=== PATIENT | male | born 1985 | race Caucasian/White ===

== ENCOUNTER 2024-06-15 22:08 | Inpatient (IN) | payer MEDICAID, SELFPAY ==
[2024-06-15] VITALS (76 sets, daily range): BP systolic 96–132; BP diastolic 50–76; PULSE 41–121; RESP 0–32; TEMP 37.7–37.8; O2SAT 81–96
--- NOTE | 2024-06-15 22:00 | RT.EKG_ITS ---
APPROVED REPORT Exam: Resting ECG Reason for Exam: Sepsis Patient Location: E HR:118 bpm ECG Measurements Heart Rate 118 AXIS MO 150 P 39 QRSd 89 QRS 38 QT 316 T 48 QTc 443 Conclusion Sinus tachycardia...rate> [address] elevation, anterior leads...ST >0.15mV in V1-V4 Physician: no stemi
[2024-06-15 22:34] LABS: Abs Immature Grans 0.08 10^3/uL (0.0-0.06); Absolute Basophil Count 0.04 10^3/uL (0.0-0.2); Absolute Eosinophil Count 0.14 10^3/uL (0.0-0.7); Absolute Monocyte Count 0.83 10^3/uL (0.1-0.8); Absolute Neutrophil Count 10.28 10^3/uL (1.2-6.7); Basophils % 0.3 %; Eosinophils % 1.1 %; HCT 44.1 % (40.0-50.0); HGB 15.9 g/dL (13.5-17.5); Immature Grans % 0.6 %; Lactate 3.8 mmol/L (<or=2.0); Lymphocytes % 8.5 %; MCHC 36.1 % (32.0-36.0); MCV 89 fL (80-95); MPV 10.5 fL (8.0-11.0); Monocytes % 6.7 %; Neutrophils % 82.8 %; Platelet Count 124 10^3/uL (130-400); RBC 4.97 10^6/uL (4.36-5.78); RDW 13.5 % (11.8-14.1); RDW-SD 43.7 fL; WBC 12.42 10^3/uL (4.4-10.8)
--- NOTE | 2024-06-15 22:34 | W.ED.GENAD ---
Discharge Plan Disposition Patient Disposition: Admit to [facility] Condition: Serious Discharge Details Chief Complaint: Cellulitis Clinical Impression: Sepsis, Cellulitis of right lower extremity, Severe sepsis Admit Date/Time: 06/15/24 23:25 Admit Provider: Edgard Bearden Attending Provider: Edgard Bearden Primary Care Provider: Unknown,Unknown ED Provider: Lucas He General Date/Time Provider Initiated Documentation: 06/15/24 22:08. HPI Narrative: This is a 39-year-old male with a past medical history of hepatitis C, GERD, who presents today for evaluation of cellulitis and sepsis. [facility]. He states that about 3 to 4 days ago he noticed some redness on his right lan. He denies any injury or trauma. He denies any initial pimples or cuts. He states that over the last few days the redness has grown and spread, and over the last 24 hours he has become febrile and felt quite ill. [facility] staff checked his temperature and it was 104.3, he was brought to the ER via EMS. He denies any cough, chest pain or shortness of breath. He admits to achiness at the site of the redness on his lan on the right, he also admits to achiness slightly traveling up his leg. He denies any history of HIV but does admit to a history of drug abuse in the past. No other complaints at this time. Related Data Home Medications ?Medication ?Instructions ?Recorded ?Confirmed buprenorphine 2 mg-naloxone 0.5 mg 2 film sublingual DAILY 06/15/24 06/15/24 sublingual film (Suboxone) buprenorphine 8 mg-naloxone 2 mg 2 film sublingual DAILY 06/15/24 06/15/24 sublingual film (Suboxone) docusate sodium 50 mg capsule 50 mg PO TID PRN 06/15/24 06/15/24 (Colace Clear) famotidine 20 mg tablet 20 mg PO BID 06/15/24 06/15/24 hydroxyzine HCl 25 mg tablet 75 mg PO DAILY 06/15/24 06/15/24 ibuprofen 200 mg tablet (Advil) 400 mg PO BID PRN 06/15/24 06/15/24 melatonin 3 mg capsule 6 mg PO QHS 06/15/24 06/15/24 triamcinolone acetonide 0.5 % 1 applic topical BID 06/15/24 06/15/24 topical cream Allergies Allergy/AdvReac Type Severity Reaction Status Date / Time No Known Allergies Allergy Unverified 06/15/24 22:09 General Stated Complaint: Cellulitis MAUREEN: 2 Exam Narrative Exam Narrative: 1.Const: Well-nourished, Well-developed, appearing stated age 2.Eyes: PERRL, no conjunctival injection, and symmetrical lids. 3.ENT: Atraumatic external nose and ears. Moist MM. Neck: Symmetric, trachea midline, No thyromegaly. 4.CVS: +S1/S2, Peripheral pulses 2+ and equal in all extremities. Brisk capillary refill in all extremities. 5.RESP: Unlabored respiratory effort. Clear to auscultation bilaterally. No wheezes rales or rhonchi 6.GI: Soft, Nontender/Nondistended, No hepatosplenomegaly. No guarding or rebound. 7.MSK: Normocephalic/Atraumatic, Extremities w/o deformity or ttp No cyanosis or clubbing, Normal movement of all extremities. Dorsalis pedis posterior tibial pulse +2 bilaterally. 8.Skin: Warm, Dry. Circumferential erythema around the right lower extremity at the level of the tip/fib, extending up towards the knee and down to the ankle. No subcutaneous crepitus, focal abscess, or vesicles. 9.Neuro: seed tester II-XII grossly intact. Sensation grossly intact, no focal neurologic deficits. 10.Psych: (AAO) x3. Appropriate mood and affect Course Vital Signs Vital signs: Vital Signs Temperature 37.8 C H 06/15/24 22:09 Pulse 121 H 06/15/24 22:09 Respiratory Rate 25 H 06/15/24 22:09 Blood Pressure 132/71 06/15/24 22:09 Pulse Oximetry 93 06/15/24 22:09 Temperature 37.7 C H 06/15/24 22:13 Temperature Source Oral 06/15/24 22:13 Pulse 118 H 06/15/24 22:13 Respiratory Rate 17 06/15/24 22:13 Blood Pressure 128/76 06/15/24 22:13 Blood Pressure Position Sitting 06/15/24 22:13 Pulse Oximetry 93 06/15/24 22:13 Oxygen Delivery Method Room Air 06/15/24 22:13 Oxygen Flow Rate 0 06/15/24 22:09 Pain Level 5 06/15/24 22:13 Lab/Test Results Lab/Test Results: 06/15/24 22:25 Blood Blood Culture - Pending 06/15/24 22:25 Blood Blood Culture - Pending Medical Decision Making This is a 39-year-old male with a past medical history of hepatitis C, GERD, who presents today for evaluation of cellulitis and sepsis. [facility]. He states that about 3 to 4 days ago he noticed some redness on his right lan. He denies any injury or trauma. He denies any initial pimples or cuts. He states that over the last few days the redness has grown and spread, and over the last 24 hours he has become febrile and felt quite ill. [facility] staff checked his temperature and it was 104.3, he was brought to the ER via EMS. He denies any cough, chest pain or shortness of breath. He admits to achiness at the site of the redness on his lan on the right, he also admits to achiness slightly traveling up his leg. He denies any history of HIV but does admit to a history of drug abuse in the past. No other complaints at this time. Patient demonstrates a notable amount of circumferential erythema in the right lower extremity in the area of the tip/fib. Extends to the knee and down to the ankle. He is tachycardic, febrile, but with a normal blood pressure. Concern for sepsis/potential for severe sepsis secondary to cellulitis. Will start with 2 L of IV fluids, 20 cc/kg bolus would be 2700 mL, so we will reassess after the first 2 L to see if the patient does develop septic shock. Or need the complete 20 cc/kg bolus. Will start broad-spectrum antibiotics of vancomycin, Zosyn, and azithromycin for MRSA coverage as well as atypical coverage. No subcutaneous gas that I can appreciate, but we will get x-ray to rule out neck Fash. We will get an HIV screen to check for immune susceptibility. Will get a screening chest x-ray and urinalysis and blood cultures, monitor closely and reassess. 12:24 AM Laboratory workup shows an elevated white count with left shift, no bandemia. Lactate high at 3.8, slightly elevated creatinine. Procalcitonin notably high at 155. COVID flu and RSV negative, chest x-ray is read as possible degree of CHF, however clinically he does not demonstrate clear evidence of this. Concern for potential atypical pulmonary component. No subcutaneous emphysema for x-ray of the right leg. Broad-spectrum antibiotics have already been started, patient has been rehydrated, heart rate has improved to 100, blood pressure remains normotensive. Symptoms consistent with severe sepsis. Discussed the case with hospitalist Dr. Bearden, he agrees with need for admission. I have extensively reviewed the treatment plan with the patient. I have addressed all patient concerns at this time. I have also discussed the plan with the admitting physician and they agree with the current assessment and plan and have agreed to assume responsibility for the patient. All parties demonstrate verbal understanding and agreement with our assessment and plan at this time. The documentation in this chart was dictated using [employer] dictation software. Please excuse any dictation errors. FINDINGS: Lungs: There may be mild redistribution of the pulmonary vascularity. No focal infiltrates. Pleural spaces: Unremarkable. No pleural effusion. No pneumothorax. Heart/Mediastinum: Unremarkable. No cardiomegaly. Bones/joints: Unremarkable. IMPRESSION: Possible degree of congestive heart failure. Thank you for allowing us to participate in the care of your patient. Dictated and Authenticated by: Marium Mcdowell MD 06/15/2024 10:58 PM Eastern Time ([place] & [place]) FINDINGS: Bones/joints: Normal. Soft tissues: There is a calcification in the anterior and medial mid calf. No subcutaneous emphysema noted. IMPRESSION: No evidence for subcutaneous emphysema. Thank you for allowing us to participate in the care of your patient. Dictated and Authenticated by: Marium Mcdowell MD 06/15/2024 10:54 PM Eastern Time ([place] & [place]) Quality:SDOH Health Related Social Needs: No Data to Display Critical Care Time Critical Care Time Critical Care Time: Yes Total Critical Care Time: 45 Attestation: Upon my evaluation, this patient had a high probability of imminent or life-threatening deterioration, which required my direct attention, intervention, and personal management. I have personally provided 45 minutes of critical care time exclusive of time spent on separately billable procedures. Time includes review of laboratory data, radiology results, discussion with consultants, and monitoring for potential decompensation. Interventions were performed as documented. PFSH All Active Problems (Updated 06/16/24 @ 00:27 by Lucas R [place], DO) Severe sepsis (Acute) GERD (gastroesophageal reflux disease) (Chronic) Anxiety disorder (Chronic) Chronic hepatitis C (Chronic) Opioid use disorder (Chronic) Cellulitis of right lower extremity (Acute) Sepsis (Acute) Social History Smoking risk assessment performed?: No Alcohol Intake: former Drug use: Current Sobriety Substance use type: former substance user and IV drugs Housing: other Do you feel safe at home: Yes Do you feel safe in your relationship?: Yes Additional Social history: inmate
[2024-06-15 22:35] LABS: Absolute Lymphocyte Count 1.06 10^3/uL (1.2-3.4)
--- NOTE | 2024-06-15 22:37 | DI.RAD_ITS ---
Exam(s) XR PORTABLE CHEST AP EXAM: XR PORTABLE CHEST AP CLINICAL HISTORY: sepsis. TECHNIQUE: 2D digital imaging was performed. COMPARISON: No exams were available for comparison FINDINGS: Single AP portable view. Heart size is upper normal. The mediastinum is not widened. Lungs are clear. No infiltrates nor obvious pleural effusions. IMPRESSION: No acute pulmonary findings on this single AP portable view of the chest. DATA REPOSITORY: RADIATION DOSE DELIVERED:
--- NOTE | 2024-06-15 22:37 | DI.RAD_ITS ---
Exam(s) XR TIB/FIB RT EXAM: XR TIB/FIB RT CLINICAL HISTORY: diffuse cellulitis, eval for gas. TECHNIQUE: 2D digital imaging was performed. COMPARISON: No exams were available for comparison FINDINGS: Two views No evidence fracture nor osseous lesions nor radiographic evidence of osteomyelitis. Calcified phleb oliths are noted. There is subcutaneous soft tissue swelling. There is no gas in the soft tissues. No radiopaque foreign bodies. IMPRESSION: No acute osseous findings. Subcutaneous edema but no gas in the soft tissues DATA REPOSITORY: RADIATION DOSE DELIVERED:
[2024-06-15 22:51] LABS: ALT 131 U/L (16-63); AST 91 U/L (15-37); Albumin 3.5 g/dL (3.4-5.0); Alkaline Phosphatase 68 U/L (46-116); Anion Gap 10.3 mmol/L (3-11); BUN 23 mg/dL (7-18); Bilirubin, Total 0.9 mg/dL (0.2-1.0); CO2 23.7 mmol/L (21.0-32.0); CREATININE 1.6 mg/dL (0.70-1.30); Calcium 8.8 mg/dL (8.5-10.1); Chloride 103 mmol/L (98-107); Estimated GFR 56.21 (mL/min/1.73m2); Glucose 132 mg/dL (74-106); Potassium 3.8 mmol/L (3.5-5.1); Sodium 137 mmol/L (136-145); Total Protein 7.7 g/dL (6.4-8.2)
--- NOTE | 2024-06-15 22:55 | DI.VRAD_ITS ---
PROCEDURE INFORMATION: Exam: XR Right Tibia and Fibula Exam date and time: 06/15/2024 10:33 PM Age: 39 years old Clinical indication: Lower leg; Right; Diffuse cellulitis, eval for gas TECHNIQUE: Imaging protocol: Radiologic exam of the right tibia and fibula. Views: 2 views. COMPARISON: No relevant prior studies available. FINDINGS: Bones/joints: Normal. Soft tissues: There is a calcification in the anterior and medial mid calf. No subcutaneous emphysema noted. IMPRESSION: No evidence for subcutaneous emphysema. Dictated and Authenticated by: Marium Mcdowell MD. Orderin Neri Zavala MD
--- NOTE | 2024-06-15 22:59 | DI.VRAD_ITS ---
PROCEDURE INFORMATION: Exam: XR Chest Exam date and time: 06/15/2024 10:36 PM Age: 39 years old Clinical indication: Other: Sepsis TECHNIQUE: Imaging protocol: Radiologic exam of the chest. Views: 1 view. Other technique: Portable exam. COMPARISON: No relevant prior studies available. FINDINGS: Lungs: There may be mild redistribution of the pulmonary vascularity. No focal infiltrates. Pleural spaces: Unremarkable. No pleural effusion. No pneumothorax. Heart/Mediastinum: Unremarkable. No cardiomegaly. Bones/joints: Unremarkable. IMPRESSION: Possible degree of congestive heart failure. Dictated and Authenticated by: Marium Mcdowell MD. Orderin Neri Zavala MD
[2024-06-15] MEDS: AZITHROMYCIN 500 MG in Normal Saline 250 ML 250 MG IVPB (23:02)
[2024-06-15] MEDS: Normal Saline 1,000 ML 1000 ML IV (23:03)
[2024-06-15] MEDS: VANCOMYCIN 2,000 MG in Normal Saline 500 ML 333.3333 MG IVPB (23:03)
[2024-06-15] MEDS: PIPERACILLIN/TAZO 4.5 GM in Normal Saline 100 ML IVPB (23:04)
[2024-06-15] MEDS: Lactated Ringers 1,000 ML 1000 ML IV (23:05)
[2024-06-15] MEDS: ACETAMINOPHEN 1,000 MG/100 ML BTL 400 MG IVPB (23:20)
--- NOTE | 2024-06-15 23:27 | W.PM.HP.N ---
Date of service: 06/15/24 Time of Service: 23:27 Assessment and Plan Assessment and plan (1) Sepsis: Start date: 06/15/24 Status: Acute Assessment and plan: This is a 39-year-old gentleman with history of increasing redness over the right leg and now fever with elevated WBC and lactate as well as tachycardia and tachypnea upon admission. Imaging did not show any subcutaneous emphysema over his right leg where he has cellulitis as a source of infection for sepsis. Lungs were also slightly abnormal but no infiltrates were seen. He was initiated on vancomycin with Zosyn and Zithromax. Because of medication complex and to maintain regimen covering both the cellulitis of possible lung process with increased markings, patient was switched to vancomycin with cefepime and doxycycline. Blood cultures were performed. He continued to have fever. Urinalysis was benign. COVID/influenza/RSV screening were negative. He will continue on IV antibiotic therapy adjusting to any positive cultures and sensitivities. He did receive fluid resuscitation which will be continued with an infusion. He is a full code. (2) Cellulitis of right lower extremity: Start date: 06/15/24 Status: Acute Assessment and plan: Continue IV vancomycin and cefepime. The increased coverage with doxycycline was initiated by the ED physician and will be continued for now with close monitoring of his respiratory status and follow-up chest x-ray if needed. (3) Opioid use disorder: Status: Chronic Assessment and plan: Patient has been on Suboxone and his [facility] did not show any prescriptions written for outpatient treatment prior to his imprisonment with the half-way t treatments being in-house not showing up on the [facility]. The Suboxone dosing will be confirmed with the half-way prior to treating in the hospital. Urine drug screen was performed. Patient is high risk for misuse, even in presence. (4) Chronic hepatitis C: Status: Chronic Assessment and plan: Patient is unaware of his status of hepatitis C and denies any previous treatment. His liver function tests are elevated. His PT/INR is slightly elevated. This should be addressed more aggressively as a treatable disease with his PCP and gastroenterology. (5) Anxiety disorder: Status: Chronic Assessment and plan: Patient is on hydroxyzine which will be continued as needed. (6) GERD (gastroesophageal reflux disease): Status: Chronic Assessment and plan: Continue PPI. History of Present Illness History of Present Illness Chief Complaint: 3 to 4 days of right lan redness and swelling with pain. Narrative: This is a 39-year-old male patient from the [facility]-way who has a history of hepatitis C and is on Suboxone for opioid drug use disorder with no IV drug use recently. He presents with a 3 to 4-day history of redness in his right lan with no trauma and the redness has grown and spread more quickly over the last day. He has fever up to 104 degrees. Fahrenheit and present. He denies any respiratory symptoms. He does have pain over the breast area with redness spreading up his leg. He does not have a history of HIV though he does have an IV drug use history with hep C. He is also on treatment for GERD and some anxiety as well as use a topical cream for an undisclosed rash by reviewing his history which is paucely recorded. Patient has any GI symptoms or focal neurological complaints. ED evaluation did show no subcutaneous emphysema in the area of his right leg cellulitis and chest x-ray did show some increased markings questioning fluid overload with no distinct infiltrate. He was begun on Zosyn, vancomycin and erythromycin after blood cultures were obtained. He did have an elevated WBC, fever and tachycardia with tachypnea as well as an elevated lactate level indicating sepsis syndrome. He did have IV fluid resuscitation with 2 L and this will be continued with ongoing antibiotic treatment for his source of infection being cellulitis of his right leg. He is a full code. Review of Systems Narrative: 13 point review of systems otherwise unrevealing or stable. PFSH All Active Problems Severe sepsis (Acute) GERD (gastroesophageal reflux disease) (Chronic) Anxiety disorder (Chronic) Chronic hepatitis C (Chronic) Opioid use disorder (Chronic) Cellulitis of right lower extremity (Acute) Sepsis (Acute) Social History Smoking risk assessment performed?: No Alcohol Intake: former Drug use: Current Sobriety Substance use type: former substance user and IV drugs Housing: other Do you feel safe at home: Yes Do you feel safe in your relationship?: Yes Additional Social history: inmate Meds Allergies and Home Medications Allergies Allergy/AdvReac Type Severity Reaction Status Date / Time No Known Allergies Allergy Unverified 06/15/24 22:09 Home Medications ?Medication ?Instructions ?Recorded ?Confirmed ?Type buprenorphine 2 mg-naloxone 0.5 mg 2 film sublingual DAILY 06/15/24 06/15/24 History sublingual film (Suboxone) buprenorphine 8 mg-naloxone 2 mg 2 film sublingual DAILY 06/15/24 06/15/24 History sublingual film (Suboxone) docusate sodium 50 mg capsule 50 mg PO TID PRN 06/15/24 06/15/24 History (Colace Clear) famotidine 20 mg tablet 20 mg PO BID 06/15/24 06/15/24 History hydroxyzine HCl 25 mg tablet 75 mg PO DAILY 06/15/24 06/15/24 History ibuprofen 200 mg tablet (Advil) 400 mg PO BID PRN 06/15/24 06/15/24 History melatonin 3 mg capsule 6 mg PO QHS 06/15/24 06/15/24 History triamcinolone acetonide 0.5 % 1 applic topical BID 06/15/24 06/15/24 History topical cream Exam Narrative Exam Narrative: General: Patient is morbidly obese and chronically ill-appearing and appears older than stated age. He does have his speech is slow monotonous. Flat affect with fair eye contact. He is alert and oriented to person, place and time. Is in moderate distress from his right leg discomfort. HEENT: Normocephalic, coarsened facial features with puffiness, eyes with pupils equal and reactive to light symmetrically, extraocular movement intact and sclera anicteric. Oropharynx with dry mucosa and poor dentition. Neck: Supple without JVD. Neck: Stooped posture without CVA tenderness. Lungs: Decreased aeration throughout with no focalizing rales or rhonchi. No increased expiratory phase or expiratory wheeze. Bronchovesicular breath sounds. Heart: Tachycardic rate with regular rhythm. No peripheral murmur or gallop. Abdomen: Obese contour with pannus, soft to palpation with no palpable hepatosplenomegaly. No focal tenderness, guarding or rebound. Bowel sounds positive in all quadrants. Genitalia/rectal: Exam deferred. Skin: Pale, moist and warm with multiple tattoos especially over right leg. Right leg does have patches of dark erythema over the anterior lateral tibial area with black markings of his skin showing some progression of his erythema to the middle of his leg. Extremities: Without clubbing or cyanosis. There is does have 2+ hard, nonpitting edema right leg compared to left with some nonpitting edema on the left as well. Fair capillary refill. Neuro: Cranial nerves II through XII gross intact, no focalized motor deficits. No tremor. Psych: Flattened affect with depressed mood. Patient appears slightly anxious. No abnormal thought processes. Patient is a minimalist with conversation. Remote and recent memory appear to be grossly intact patient stated he has been in half-way for the last year. Results Imaging Imaging Studies: Exam: XR Right Tibia and Fibula Exam date and time: 06/15/2024 10:33 PM Age: 39 years old Clinical indication: Lower leg; Right; Diffuse cellulitis, eval for gas TECHNIQUE: Imaging protocol: Radiologic exam of the right tibia and fibula. Views: 2 views. COMPARISON: No relevant prior studies available. FINDINGS: Bones/joints: Normal. Soft tissues: There is a calcification in the anterior and medial mid calf. No subcutaneous emphysema noted. IMPRESSION: No evidence for subcutaneous emphysema. Exam: XR Chest Exam date and time: 06/15/2024 10:36 PM Age: 39 years old Clinical indication: Other: Sepsis TECHNIQUE: Imaging protocol: Radiologic exam of the chest. Views: 1 view. Other technique: Portable exam. COMPARISON: No relevant prior studies available. FINDINGS: Lungs: There may be mild redistribution of the pulmonary vascularity. No focal infiltrates. Pleural spaces: Unremarkable. No pleural effusion. No pneumothorax. Heart/Mediastinum: Unremarkable. No cardiomegaly. Bones/joints: Unremarkable. IMPRESSION: Possible degree of congestive heart failure. Labs 06/15/24 22:25 06/15/24 22:25 Labs: Laboratory Results - last 24 hr 06/15/24 22:25 WBC 12.42 H RBC 4.97 Hgb 15.9 Hct 44.1 MCV 89 MCH 32.0 MCHC 36.1 H RDW 13.5 Plt Count 124 L MPV 10.5 Immature Gran % 0.6 Neutrophils % 82.8 Lymphocytes % 8.5 Monocytes % 6.7 Eosinophils % 1.1 Basophils % 0.3 Nucleated RBC % 0.0 Absolute Neutrophils 10.28 H Absolute Lymphocytes 1.06 L Absolute Monocytes 0.83 H Absolute Eosinophils 0.14 Absolute Basophils 0.04 VBG Lactate 3.8 H* Sodium 137 Potassium 3.8 Chloride 103 Carbon Dioxide 23.7 Anion Gap 10.3 BUN 23 H Creatinine 1.6 H Est GFR (CKD-EPI 2020) 56.21 Glucose 132 H Calcium 8.8 Total Bilirubin 0.9 AST 91 H ALT 131 H Alkaline Phosphatase 68 Total Protein 7.7 Albumin 3.5 Last Vital Signs Temp 37.7 C H 06/15/24 22:13 Pulse 118 H 06/15/24 22:13 Resp 17 06/15/24 22:13 BP 128/76 06/15/24 22:13 Pulse Ox 93 06/15/24 22:13 Time Spent Time spent with Patient: >75 minutes Time was spent: preparing to see the patient(eg.review tests), obtaining and/or reviewing separately otained hiistory, ordering medications,tests, procedures, indepentently interpreting results and care coordination
[2024-06-16] VITALS (14 sets, daily range): BP systolic 103–119; BP diastolic 58–75; PULSE 81–102; RESP 16–20; TEMP 35.1–40.3; O2SAT 94–99
--- NOTE | 2024-06-16 | W.PC.ACHO ---
Registration Status: Primary Language: Preferred Language: ED Information & Data Chief Complaint Cellulitis 06/15/24 22:49 Triage Note Pt w/ RLE redness, soreness 06/15/24 22:09 and swelling x2-3 days BIBEMS from alf. AOx3 but fatigued, c/o chills and fevers. Was febrile to 104. 3F per [facility] RN, but given 400mg ibuprofen prior to EMS arrival w/ some improvement . Pt c/o pain in lan w/ movement that radiates up into thigh Most Recent Vital Signs Temperature 37.7 C H 06/15/24 22:13 Temperature Source Oral 06/15/24 22:13 Pulse 103 H 06/15/24 23:35 Respiratory Rate 18 06/15/24 23:35 Blood Pressure 128/76 06/15/24 22:13 Blood Pressure Position Sitting 06/15/24 22:13 Pulse Oximetry 95 06/15/24 23:35 Oxygen Delivery Method Room Air 06/15/24 22:13 Oxygen Flow Rate 0 06/15/24 22:09 Pain Level 5 06/15/24 22:13 Allergies No Known Allergies Allergy (Unverified 06/15/24 22:09) Precautions Isolation Standard precaution 06/15/24 22:13 IV IV Catheter Type [Left Saline Lock Antecubital] IV Catheter Type [Right Diffusics Antecubital] IV Catheter Gauge [Left 20 Antecubital] IV Catheter Gauge [Right 20 Antecubital] Diet Orders Category Date Time Status Regular/Normal [DIET] Nutrition 06/16/24 Breakfast Ordered Diagnostics 06/15/24 06/15/24 Range/Units 23:16 22:25 WBC 12.42 H (4.4-10.8) 10^3/uL RBC 4.97 (4.36-5.78) 10^6/uL Hgb 15.9 (13.5-17.5) g/dL Hct 44.1 (40.0-50.0) % MCV 89 (80-95) fL MCH 32.0 (27.0-33.0) pg MCHC 36.1 H (32.0-36.0) % RDW 13.5 (11.8-14.1) % Plt Count 124 L (130-400) 10^3/uL MPV 10.5 (8.0-11.0) fL Immature Gran % 0.6 % Neutrophils % 82.8 % Lymphocytes % 8.5 % Monocytes % 6.7 % Eosinophils % 1.1 % Basophils % 0.3 % Nucleated RBC % 0.0 (0.0-0.3) % Absolute Neutrophils 10.28 H (1.2-6.7) 10^3/uL Absolute Lymphocytes 1.06 L (1.2-3.4) 10^3/uL Absolute Monocytes 0.83 H (0.1-0.8) 10^3/uL Absolute Eosinophils 0.14 (0.0-0.7) 10^3/uL Absolute Basophils 0.04 (0.0-0.2) 10^3/uL PT Pending INR Pending VBG Lactate 3.8 H* (<or=2.0) mmol/L Sodium 137 (136-145) mmol/L Potassium 3.8 (3.5-5.1) mmol/L Chloride 103 (98-107) mmol/L Carbon Dioxide 23.7 (21.0-32.0) mmol/L Anion Gap 10.3 (3-11) mmol/L BUN 23 H (7-18) mg/dL Creatinine 1.6 H (0.70-1.30) mg/dL Est GFR (CKD-EPI 2020) 56.21 (mL/min/1.73m2) Glucose 132 H (74-106) mg/dL Calcium 8.8 (8.5-10.1) mg/dL Magnesium Pending Total Bilirubin 0.9 (0.2-1.0) mg/dL AST 91 H (15-37) U/L ALT 131 H (16-63) U/L Alkaline Phosphatase 68 (46-116) U/L Total Protein 7.7 (6.4-8.2) g/dL Albumin 3.5 (3.4-5.0) g/dL Procalcitonin 155.50 ng/mL COVID-19 Source Pending SARS-CoV-2 (PCR) Pending Influenza Type A (PCR) Pending Influenza Type B (PCR) Pending RSV (PCR) Pending 06/15/24 22:25 Blood Culture - Pending Blood 06/15/24 22:25 Blood Culture - Pending Blood [id number] Documentation Fingerstick Glucose Start: 06/15/24 22:18 Freq: .Stat Status: Active Protocol: Activity Type Activity Date Activity User E-sign Co-sign Detail Recorded Client Recorded Date Recorded By Document 06/15/24 23:35 LB [id number] 06/15/24 23:36 LB Intake and Output - 24 Hour Total 06/15/24 22:03 thru 06/15/24 23:37 Intake Total 200 Balance 200 Weight 136.078 kg Intake: IV 200 Falls Risk Assessment History of Falls No History 06/15/24 22:13 Contributing Factors No Factors 06/15/24 22:13 Ambulatory Aids Independent 06/15/24 22:13 Tubes/Lines None 06/15/24 22:13 Gait Evaluation W/no contributing factors 06/15/24 22:13 Cognition No cognitive impairment 06/15/24 22:13 Fall Total Score 10 06/15/24 22:13 Level of Risk Standard/Low Risk 06/15/24 22:13 Problems (Last Reviewed 06/15/24 @ 23:32 by Edgard Bearden) GERD (gastroesophageal reflux disease) (Chronic) Anxiety disorder (Chronic) Chronic hepatitis C (Chronic) Opioid use disorder (Chronic) Cellulitis of right lower extremity (Acute) Sepsis (Acute) v v v v v v v v v Sending and/or Receiving Nurses: Please use comment section below to note any information pertinent to the patient hand-off not included above. Information / Comments: Report received from:Fide. patient is alert and oriented x3. HRR, tachy. He is on room air. He has 2 IV sites. Has had multiple antibiotics. All questions asked, answered. Patient to be transported to [facility].
[2024-06-16 00:04] LABS: Magnesium 1.1 mg/dL (1.8-2.4); Prothrombin Time 13.3 sec (9.1-11.1)
[2024-06-16 00:05] LABS: INR 1.3 (0.9-1.1)
[2024-06-16 00:11] LABS: COVID-19 PCR Negative (Negative); Influenza A PCR Negative (Negative); Influenza B PCR Negative (Negative); RSV PCR Negative (Negative)
[2024-06-16 00:18] LABS: Source Nasopharynx
[2024-06-16] MEDS: Melatonin 3 MG TAB 6 MG PO (00:49)
[2024-06-16] MEDS: Normal Saline 1,000 ML 125 ML IV ×3 (01:30→20:09)
[2024-06-16 02:10] LABS: Bilirubin Negative (Negative); Blood Negative (Negative); Clarity Clear (Clear); Glucose Negative (Negative); Ketones Negative (Negative); Leukocyte Esterase Negative (Negative); Nitrite Negative (Negative); Specific Gravity 1.025 (1.005-1.025); Urobilinogen 0.2 mg/dL (Up to 0.2)
[2024-06-16 02:20] LABS: Bacteria Rare HPF (Negative); C & S Indicated? No; Casts Negative LPF (Negative); Crystals Negative HPF (Negative); Epithelial Cells Rare HPF (Negative); Mucus Negative (Negative); RBC Negative HPF (0-2); WBC Negative HPF (0-5)
[2024-06-16 02:27] LABS: *AMPHETAMINES SCREEN URINE Negative (Negative); *BARBITURATES SCREEN URINE Negative (Negative); *BENZODIAZEPINES SCREEN URINE Negative (Negative); Cannabinoids THC Negative (Negative); Cocaine Screen,Urine Negative (Negative); METHADONE URINE SCREEN Negative (Negative); OPIATES URINE SCREEN Negative (Negative)
[2024-06-16 02:29] LABS: Tricyclic Antidepressants Negative (Negative)
[2024-06-16 07:17] LABS: HCT 41.6 % (40.0-50.0); HGB 14.3 g/dL (13.5-17.5); MCH 31.2 pg (27.0-33.0); MCHC 34.4 % (32.0-36.0); MCV 91 fL (80-95); MPV 9.7 fL (8.0-11.0); RBC 4.59 10^6/uL (4.36-5.78); RDW 13.6 % (11.8-14.1); RDW-SD 45.3 fL; WBC 9.75 10^3/uL (4.4-10.8)
[2024-06-16 07:18] LABS: Lactate 3.2 mmol/L (<or=2.0)
[2024-06-16 07:35] LABS: ALT 116 U/L (16-63); AST 83 U/L (15-37); Alkaline Phosphatase 48 U/L (46-116); Anion Gap 8.2 mmol/L (3-11); BUN 22 mg/dL (7-18); Bilirubin, Total 1.4 mg/dL (0.2-1.0); CO2 25.8 mmol/L (21.0-32.0); CREATININE 1.4 mg/dL (0.70-1.30); Calcium 8.1 mg/dL (8.5-10.1); Chloride 104 mmol/L (98-107); Estimated GFR 65.98 (mL/min/1.73m2); Glucose 144 mg/dL (74-106); Magnesium 1.3 mg/dL (1.8-2.4); Potassium 4.5 mmol/L (3.5-5.1); Sodium 138 mmol/L (136-145)
[2024-06-16 07:38] LABS: Platelet Count 93 10^3/uL (130-400)
[2024-06-16 07:40] LABS: Vancomycin, Random 18.2 ug/mL
[2024-06-16] MEDS: CEFEPIME 2 GM in Normal Saline 100 ML IVPB ×3 (07:42→23:58)
[2024-06-16] MEDS: Normal Saline Flush 10 ML SYR IVP ×2 (07:44→20:10)
[2024-06-16] MEDS: Buprenorphine/Naloxone 8 mg/2 mg FILM 2 EACH SL (08:31)
[2024-06-16] MEDS: Buprenorphine/Naloxone 2 mg/0.5 mg FILM 2 EACH SL (08:31)
[2024-06-16] MEDS: Famotidine 20 MG TAB PO ×2 (08:31→20:10)
--- NOTE | 2024-06-16 08:34 | INITIAL_ITS ---
Date of service: 06/16/24 Time of Service: 08:34 Care Management Initial Assmt Initial Assessment Reason for Hospitalization: Sepsis Functional Status/Living Situation Patient Presentation: Ramses was lying in bed, with a sales officer in attendance, when CM met with him. He was polite but not very talkative. Ramses is from [facility] and lives alone. He has one son who is 16 that he keeps in touch with. 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 He is currently incarcerated at the [facility] in [facility]. His earliest release date is October. Ramses was admitted with sepsis. He is not hypotensive but he is a bit tachycardic with a HR He also has chronic Hepatitis C and his liver enzymes are elevated as is his WBC. Town of Residence: [facility] Resides with: Other (currently incarcerated) Significant Other/Family: Out of area Employment Status: Unemployed Instrumental Activities of Daily Living (ADLs): Independent Medications Medication Management: No Issues/Barriers identified Advance Directives Advance Directives: Do you have an Advance Directive: AD On File at [facility]: N 06/15/24 22:53 Date Asked 06/15/24 06/15/24 22:53 AD Date Reviewed COLST On File at [facility] COLST Date Scanned Code Status Resuscitation Status Full Code Portal Pt does not currently have a portal and education provided: No Portal Education: Patient declined Insurance Coverage/Financial Issues [place]: [place] [employer] Care Team Visit Care Team Role Provider Type Rosaura Chung APRN MD [facility] STAFF PHYSICIAN Unknown Unknown Primary Care Provider STAFF PHYSICIAN Lucas He DO Emergency Provider [facility] STAFF PHYSICIAN Edgard Bearden Admit Provider NON-[facility] STAFF PHYSICIAN Attending Provider Discharge Potential Discharge Needs: Other (return to skilled nursing) Anticipated Barriers to Discharge: None Identified Patient/Family Education Needs: Review discharge instructions, discuss Ask Me Three Transportation: Facility Transport Plan: Anticipate Ramses will return to skilled nursing when medically cleared. He will follow up with the facility providers and plan of care and transport with corrections officers. CM will follow and continue to support discharge planning. Social Determinants of Health Screening Social Determinants of health last assessed in clinic: 06/15/24 Will the Patient Participate in the Screening?: Declined to provide Do you worry about having a steady place to live?: no Problems where you live: no known problems In the past 12 months, have you had to go without electric, gas, oil or water in your home?: no Has lack of transportation kept you from medical appointments or from doing things needed for daily living?: no Has anyone in your life made you feel unsafe or unsupported?: no How hard is it for you to pay for the very basics like food, housing, medical care, and heating? Would you say it is:: Not hard at all Do you want help finding or keeping work or a job?: I do not need or want help If for any reason you need help with day-to-day activities such as bathing, preparing meals, shopping, managing finances, etc., do you get the help you need?: I don?t need any help How often do you feel lonely or isolated from those around you?: Never Do you speak a language other than [place] at home?: No Does the patient want assistance with any of the above?: No PFSH All Active Problems (Updated 06/16/24 @ 12:50 by Rosaura Chung APRN) ISIS (acute kidney injury) (Acute) Morbid obesity (Acute) Severe sepsis (Acute) GERD (gastroesophageal reflux disease) (Chronic) Anxiety disorder (Chronic) Chronic hepatitis C (Chronic) Opioid use disorder (Chronic) Cellulitis of right lower extremity (Acute) Sepsis (Acute) Social History Smoking risk assessment performed?: No Alcohol Intake: former Drug use: Current Sobriety Substance use type: former substance user and IV drugs Housing: other Do you feel safe at home: Yes Do you feel safe in your relationship?: Yes Additional Social history: inmate
[2024-06-16] MEDS: DOXYCYCLINE 100 MG in Normal Saline 100 ML IVPB ×2 (10:05→20:59)
--- NOTE | 2024-06-16 10:14 | PGE_ITS ---
Date of Service Date of service: 06/16/24 Time of Service: 10:14 Assessment and Plan Assessment and plan (1) Severe sepsis: Status: Acute Assessment and plan: Sepsis criteria met with WBC > 12 and tachycardia > 90 w HR 104 Source :Most likely RLE cellulitis VS lungs with increased marking on imaging w/o clear infiltrates Severity criteria met with Lactate > 2 at 3.8 Continue Vancomycin, cefepime and doxycycline Blood Cx pending CBC in AM (2) Cellulitis of right lower extremity: Start date: 06/15/24 Status: Acute Assessment and plan: No subcutaneous emphysema over his right leg as per imaging Continue to follow progression of erythema And as per point 1 (3) ISIS (acute kidney injury): Status: Acute Assessment and plan: Cr at 1.6 on admission in the setting of severe sepsis- no prior history of CKD IVF bolus in ED Ongoing IVF CMP in AM (4) Opioid use disorder: Status: Chronic Assessment and plan: Urine negative , on Suboxone and his VPMS did not show any prescriptions written for outpatient treatment prior to his imprisonment with the senior care treatments being in-house not showing up on the VPMS. The Suboxone dosing confirmed by pharmacy with the senior care Contoinue outpatient dosing (5) Chronic hepatitis C: Status: Chronic Assessment and plan: PCP f/u as patient is unaware of his status of hepatitis C LFT's are elevated - will trend PT/INR is slightly elevated- no bleeding ongoing thromocytopenia 124 on admit and 93 today- will continue to monitor (6) Morbid obesity: Status: Acute Assessment and plan: BMI 43.5 kg/m2 heart healthy diet Nutrition consult Counseled on weight management Discussion to be continue with PCP (7) Anxiety disorder: Status: Chronic Assessment and plan: ongoing home dose of hydroxyzine as needed. (8) GERD (gastroesophageal reflux disease): Status: Chronic Assessment and plan: Continue famotidine Discussed w Dr Brewer Subjective Subjective Patient reports: feels better (but c/lo headache, pain up to right groin), still having pain, tolerating liquids well, tolerating a regular diet, flatus, no bowel movement and afebrile; denies diarrhea, nausea, vomiting or shortness of breath Exam Narrative Exam Narrative: Constitutional The patient without acute distress and has obese body habitus Neck: Normal ROM, no meningeal signs Neuro:alert and oriented X4 , no neurological focal deficit Resp: Unlabored breathing, clear lung bilaterally Cardio: regular rhythm, S1, S2, no murmur, bilaterally positive radial and dorsalis pedis pulses GI: Abdomen is not distended, soft and minimally tender hypogastric area- chronic , bowel sounds are present : Negative Costovertebral angle tenderness, no bladder distension Integumentary: Erythema to RLE, somewhat receding but extending around popliteal fossa - ROM intact Extremities: strength 5/5 to bilateral lower and upper extremities Psych: RASS 0, congruent mood and normal affect. Objective Last Vital Signs Temp 36.2 C L 06/16/24 07:29 Pulse 81 06/16/24 07:29 Resp 16 06/16/24 07:29 BP 117/75 06/16/24 07:29 Pulse Ox 97 06/16/24 07:29 Laboratory Results - last 24 hr 06/15/24 06/15/24 06/16/24 22:25 23:16 02:00 WBC 12.42 H RBC 4.97 Hgb 15.9 Hct 44.1 MCV 89 MCH 32.0 MCHC 36.1 H RDW 13.5 Plt Count 124 L MPV 10.5 Immature Gran % 0.6 Neutrophils % 82.8 Lymphocytes % 8.5 Monocytes % 6.7 Eosinophils % 1.1 Basophils % 0.3 Nucleated RBC % 0.0 Absolute Neutrophils 10.28 H Absolute Lymphocytes 1.06 L Absolute Monocytes 0.83 H Absolute Eosinophils 0.14 Absolute Basophils 0.04 PT 13.3 H INR 1.3 H VBG Lactate 3.8 H* Sodium 137 Potassium 3.8 Chloride 103 Carbon Dioxide 23.7 Anion Gap 10.3 BUN 23 H Creatinine 1.6 H Est GFR (CKD-EPI 2020) 56.21 Glucose 132 H Calcium 8.8 Magnesium 1.1 L Total Bilirubin 0.9 AST 91 H ALT 131 H Alkaline Phosphatase 68 Total Protein 7.7 Albumin 3.5 Procalcitonin 155.50 Urine Color Yellow Urine Clarity Clear Urine pH 6.0 Ur Specific [place] 1.025 Urine Protein 30 H Urine Ketones Negative Urine Blood Negative Urine Nitrite Negative Urine Bilirubin Negative Urine Urobilinogen 0.2 Ur Leukocyte Esterase Negative Urine RBC Negative Urine WBC Negative Ur Epithelial Cells Rare Urine Crystals Negative Urine Bacteria Rare Urine Casts Negative Urine Mucus Negative Ur Culture Indicated? No Urine Glucose Negative Random Vancomycin Urine Opiates Screen Negative Urine Methadone Screen Negative Ur Barbiturates Screen Negative Ur Tricyclics Screen Negative Ur Amphetamines Screen Negative U Benzodiazepines Scrn Negative Urine Cocaine Screen Negative Ur THC Screen Negative COVID-19 Source Nasopharynx SARS-CoV-2 (PCR) Negative Influenza Type A (PCR) Negative Influenza Type B (PCR) Negative RSV (PCR) Negative 06/16/24 07:03 WBC 9.75 RBC 4.59 Hgb 14.3 Hct 41.6 MCV 91 MCH 31.2 MCHC 34.4 RDW 13.6 Plt Count 93 L MPV 9.7 Immature Gran % Neutrophils % Lymphocytes % Monocytes % Eosinophils % Basophils % Nucleated RBC % Absolute Neutrophils Absolute Lymphocytes Absolute Monocytes Absolute Eosinophils Absolute Basophils PT INR VBG Lactate 3.2 H* Sodium 138 Potassium 4.5 Chloride 104 Carbon Dioxide 25.8 Anion Gap 8.2 BUN 22 H Creatinine 1.4 H Est GFR (CKD-EPI 2020) 65.98 Glucose 144 H Calcium 8.1 L Magnesium 1.3 L Total Bilirubin 1.4 H AST 83 H ALT 116 H Alkaline Phosphatase 48 Total Protein 7.0 Albumin 3.0 L Procalcitonin Urine Color Urine Clarity Urine pH Ur Specific [place] Urine Protein Urine Ketones Urine Blood Urine Nitrite Urine Bilirubin Urine Urobilinogen Ur Leukocyte Esterase Urine RBC Urine WBC Ur Epithelial Cells Urine Crystals Urine Bacteria Urine Casts Urine Mucus Ur Culture Indicated? Urine Glucose Random Vancomycin 18.2 Urine Opiates Screen Urine Methadone Screen Ur Barbiturates Screen Ur Tricyclics Screen Ur Amphetamines Screen U Benzodiazepines Scrn Urine Cocaine Screen Ur THC Screen COVID-19 Source SARS-CoV-2 (PCR) Influenza Type A (PCR) Influenza Type B (PCR) RSV (PCR) Time Spent with Patient Time Spent with Patient: >50 minutes Time was spent: preparing to see the patient(eg.review tests), obtaining and/or reviewing separately otained hiistory, ordering medications,tests, procedures, referring, communicating with other health multi care technician, indepentently interpreting results, counseling the patient and care coordination
--- NOTE | 2024-06-16 10:50 | PHACLINREV_ITS ---
Pharmacy Admission Review Admission Clinical Review Admission Pharmacy Review: Cellulitis of right lower extremity (Acute) Sepsis (Acute) No Known Allergies Allergy (Unverified 06/15/24 22:09) Resuscitation Status Full Code Height 5 ft 10 in Weight 137.5 kg Pharmacy Admission Review Renal Dosing Renal Dosing: BUN 22 mg/dL (7-18) H 06/16/24 07:03 Creatinine 1.4 mg/dL (0.70-1.30) H 06/16/24 07:03 Medications needing adjustments: Reviewed (CrCl 99.9 mL/min, BUN decreased from 23 and SCr decreased from 1.6) List of meds needing interventions: Current medications are okay Anticoagulation Anticoagulation: Hgb 14.3 g/dL (13.5-17.5) 06/16/24 07:03 Hct 41.6 % (40.0-50.0) 06/16/24 07:03 Plt Count 93 10^3/uL (130-400) L 06/16/24 07:03 INR 1.3 (0.9-1.1) H 06/15/24 22:25 Creatinine 1.4 mg/dL (0.70-1.30) H 06/16/24 07:03 DVT Prophylaxis: Reviewed (SCDs) Opiate Usage Evaluate Pain Scale/Pains Meds: Intervened (has 2 Suboxone orders for total of 20mg qAM - confirmed dose with nurse at [facility]) Relevant Labs Relevant Labs: Sodium 138 mmol/L (136-145) 06/16/24 07:03 Potassium 4.5 mmol/L (3.5-5.1) 06/16/24 07:03 Chloride 104 mmol/L (98-107) 06/16/24 07:03 Magnesium 1.3 mg/dL (1.8-2.4) L 06/16/24 07:03 Electrolytes, C-Reactive P, ESR: Reviewed (Mg 1.3 - provider aware, plans to order replacement, AST/ALT decreased from 91/131 to 83/116) Cardiac Review BP, HR, EF%: Reviewed (BP and HR WNL) QTc Review QTc: Reviewed (443 from 06/15/24) IV to PO Switch IV Medications: Reviewed (cefepime, doxycycline and vancomycin) Home Meds Home Med List reviewed: Intervened Relevent Home Meds Not ordered & why?: Ibuprofen (PRN) and triamcinolone cream (PRN) Called [facility] to confirm home med list. Made the following changes on home med list (provider aware): Changed melatonin to PRN Changed hydroxyzine from 75mg daily to 25mg TID PRN Changed ibuprofen from 400mg to 600mg I changed orders for melatonin and hydroxyzine to match home med list. Provider is aware of changes. Current Meds Current Medication Order Review: Intervened Comments: Changed melatonin and hydroxyzine orders as mentioned above Pharmacy Antibiotic Review Relevant Labs: Relevant Labs 06/15/24 22:25 Procalcitonin 155.50 WBC 9.75 10^3/uL (4.4-10.8) 06/16/24 07:03 Procalcitonin 155.50 ng/mL 06/15/24 22:25 Temperature 36.2 C Temperature 36.2 C Temperature 35.1 C Temperature 35.9 C Temperature 37.7 C 06/15/24 @2359 Pharmacy Antibiotic Activity: C/S review and Reviewed, no change Comments: Patient is on cefepime, doxycycline and vancomycin, day 1, for sepsis/cellulitis/possible pneumonia. Vancomycin dose currently 1500mg q12h with predicted AUC of 596 and trough of 15.4. Will order another level if there are significant changes in renal function or prolonged treatment. WBC decreased from 12.42 and blood cultures pending. Last elevated temp was yesterday at 2359, has been afebrile since.
[2024-06-16] MEDS: Docusate Sodium 100 MG CAP PO ×2 (10:53→20:10)
[2024-06-16] MEDS: Acetaminophen 500 MG TAB 1000 MG PO ×2 (10:53→17:11)
[2024-06-16] MEDS: VANCOMYCIN/WATER (PEG) 1.5 GM/300 ML BAG IVPB ×2 (11:10→21:57)
[2024-06-16] MEDS: MAGNESIUM SULFATE 4 GM/100 ML BAG IV_INF (11:11)
--- NOTE | 2024-06-16 14:43 | W.NUTRFU ---
Date of service: 06/16/24 Time of Service: 15:23 Nutrition Note NOTE: Pt is 39yo male currently incarcerated, being treated here for sepsis, ISIS, and cellulitis of RLE. Hx of morbid obesity with current BMI >40 and hepatitis C, GERD. Elevated glucose at 144 fasting this morning - could be related to infection/inflammatory state - would recommend A1C. Heart healthy diet orderd. Pt with reported fair appetite/intake. Total protein lab wnl today with low albumin at 3.0- again probably more indicative of inflammation than low protein status. Calcium low at 8.1 today - would recommend vitamin D lab due to risk of deficiency with long hours without light inside as well as increased need due to obesity. Magnesium low - IV repletion given. situation is difficult with weight mgt as incarcerated and meals are not that varied or under his discretion. Encouraged protein and veggies with smaller emphasis on starches offered and avoid juice! PT would benefit from trial of GLP-1. Time Spent in Nutritional Counseling and Treatment: 10 min
--- NOTE | 2024-06-16 16:25 | NUR.NOTE ---
patient has been Axox4 this shift, this afternoon has a temp of 38.3, tylenol not due until 1700, SQL SSRS DEVELOPER Rosaura Chung aware ,will recheck temp around 1700. Cellulitis outlined this AM on back side of R thigh, no changes since then. On IV abx, pending blood cxs, PIVs intact, ambulates independently, poor oral intake, dietary consult placed, reporting reflux despite pepcid this AM, asked SQL SSRS DEVELOPER for prn tums. Patient sleeping in bed most of the day, feels tired and with little appetite. Bed low/locked, call barrett in reach, guards at bedside. Nursing Note:
[2024-06-16] MEDS: Ibuprofen 600 MG TAB PO (20:10)
[2024-06-17 03:03] VITALS: BP 113/62; PULSE 75; RESP 18; TEMP 36.5; O2SAT 95
[2024-06-17 06:02] LABS: Abs Immature Grans 0.07 10^3/uL (0.0-0.06); Absolute Basophil Count 0.04 10^3/uL (0.0-0.2); Absolute Eosinophil Count 0.03 10^3/uL (0.0-0.7); Absolute Lymphocyte Count 1.26 10^3/uL (1.2-3.4); Absolute Monocyte Count 0.52 10^3/uL (0.1-0.8); Basophils % 0.6 %; Eosinophils % 0.4 %; HCT 36.4 % (40.0-50.0); HGB 12.9 g/dL (13.5-17.5); Lymphocytes % 18.5 %; MCHC 35.4 % (32.0-36.0); MCV 90 fL (80-95); MPV 10.5 fL (8.0-11.0); Monocytes % 7.6 %; Neutrophils % 71.9 %; RBC 4.03 10^6/uL (4.36-5.78); RDW 13.9 % (11.8-14.1); RDW-SD 45.9 fL; WBC 6.82 10^3/uL (4.4-10.8)
[2024-06-17 06:07] LABS: Magnesium 2.1 mg/dL (1.8-2.4)
[2024-06-17] MEDS: Normal Saline 1,000 ML 125 ML IV (06:14)
[2024-06-17 06:16] LABS: ALT 87 U/L (16-63); AST 74 U/L (15-37); Albumin 2.6 g/dL (3.4-5.0); Alkaline Phosphatase 45 U/L (46-116); Anion Gap 5.8 mmol/L (3-11); BUN 20 mg/dL (7-18); Bilirubin, Total 1.5 mg/dL (0.2-1.0); CO2 26.2 mmol/L (21.0-32.0); CREATININE 0.9 mg/dL (0.70-1.30); Calcium 7.8 mg/dL (8.5-10.1); Chloride 106 mmol/L (98-107); Estimated GFR 112.11 (mL/min/1.73m2); Glucose 111 mg/dL (74-106); Sodium 138 mmol/L (136-145); Total Protein 6.6 g/dL (6.4-8.2)
[2024-06-17 06:28] LABS: Platelet Count 84 10^3/uL (130-400)
[2024-06-17] MEDS: Buprenorphine/Naloxone 8 mg/2 mg FILM 2 EACH SL (07:29)
[2024-06-17] MEDS: Famotidine 20 MG TAB PO ×2 (07:29→19:39)
[2024-06-17] MEDS: Buprenorphine/Naloxone 2 mg/0.5 mg FILM 2 EACH SL (07:29)
[2024-06-17] MEDS: Docusate Sodium 100 MG CAP PO ×2 (07:29→19:39)
[2024-06-17] MEDS: CEFEPIME 2 GM in Normal Saline 100 ML IVPB ×3 (07:30→23:50)
[2024-06-17] MEDS: Normal Saline Flush 10 ML SYR IVP ×3 (07:30→23:51)
[2024-06-17 07:34] VITALS: BP 130/95; PULSE 76; RESP 16; TEMP 36.7; O2SAT 97
[2024-06-17] MEDS: DOXYCYCLINE 100 MG in Normal Saline 100 ML IVPB ×2 (09:02→21:31)
--- NOTE | 2024-06-17 09:05 | NUR.NOTE ---
patient is AxOx4 this shift, VSS, afebrile, reports he feels a little better this AM, RLE cellulitis has noticeably receded from prior outlining with no new redness. Patient ate small amounts of breakfast but still has poor appetite, IVF running, AM labs WNL, will monitor for s/s of increased infection, NSR at this time on tele, voiding, no BM since 06/14, offered pt miralax on top of colace but wanted to eat breakfast first before trying prn meds. Resting in bed with call light in reach, bed low/locked, guard at bedside. Nursing Note:
[2024-06-17] MEDS: VANCOMYCIN/WATER (PEG) 1.5 GM/300 ML BAG IVPB ×2 (10:09→22:18)
--- NOTE | 2024-06-17 10:39 | W.PM.PROGNOT ---
Date of Service Date of service: 06/17/24 Time of Service: 10:39 Assessment and Plan Assessment and plan (1) Severe sepsis: Status: Acute Assessment and plan: On admission-Sepsis criteria met with WBC > 12 and tachycardia > 90 w HR 104 -Source :Most likely RLE cellulitis VS lungs with increased marking on imaging w/o clear infiltrates Severity criteria met with Lactate > 2 at 3.8 then down to 3.2 Blood Cx negative at 24 hours but afebrile for < 24 hours with antipyretics -Ongoing PRN antipyretics Continue Vancomycin, cefepime and doxycycline CBC in AM (2) Cellulitis of right lower extremity: Start date: 06/15/24 Status: Acute Assessment and plan: No subcutaneous emphysema over his right leg as per imaging Increased pain from ongoing blisters to RLE Continue to follow progression of erythema -improving today And as per point 1 (3) ISIS (acute kidney injury): Status: Acute Assessment and plan: Cr at 1.6 on admission in the setting of severe sepsis- no prior history of CKD-Cr 0.9 today IVF bolus in ED Discontinue IVF and encourage oral fluid intake CMP in AM (4) Opioid use disorder: Status: Chronic Assessment and plan: Continue outpatient dosing . Suboxone dosing confirmed by pharmacy with the long-term (5) Chronic hepatitis C: Status: Chronic Assessment and plan: PCP f/u as patient is unaware of his status of hepatitis C LFT's are elevated - will trend Down trend in LFT's PT/INR is slightly elevated on admission - no bleeding will not repeat at this time Ongoing thromocytopenia 124 on admission and 84 today most likely d/t hemodilution- will continue to monitor (6) Morbid obesity: Status: Acute Assessment and plan: BMI 43.5 kg/m2 heart healthy diet Nutrition consult- recommendation for protein and veggies with smaller emphasis on starches offered and avoid juice! PT would benefit from trial of GLP-1. -vitamin D lab due to risk of deficiency with long hours without light inside as well as increased need due to obesity. Counseled on weight management Discussion to be continue with PCP as food choice are limited in present living situation (7) Anxiety disorder: Status: Chronic Assessment and plan: Continue home dose of hydroxyzine as needed. (8) GERD (gastroesophageal reflux disease): Status: Chronic Assessment and plan: Ongoing oral Pepcid Discussed w Dr Brewer Subjective Subjective Patient reports: feels better, still having pain, tolerating liquids well, tolerating a regular diet, voiding w/o difficulty, flatus, no bowel movement and afebrile; denies diarrhea, nausea, vomiting or shortness of breath Exam Narrative Exam Narrative: Constitutional The patient without acute distress and has obese body habitus Neuro:alert and oriented X4 , non-focal Resp:Clear lung bilaterally Cardio: regular rhythm, S1, S2,bilaterally positive radial and dorsalis pedis pulses GI: Abdomen is not distended, non- tender , bowel sounds are present Integumentary: Erythema and blisters to RLE, somewhat receding but receding around popliteal fossa - ROM intact Extremities: strength 5/5 to bilateral lower and upper extremities Psych: RASS 0, congruent mood and normal affect. Objective Last Vital Signs Temp 36.7 C 06/17/24 07:34 Pulse 76 06/17/24 07:34 Resp 16 06/17/24 07:34 BP 130/95 H 06/17/24 07:34 Pulse Ox 97 06/17/24 07:34 Laboratory Results - last 24 hr 06/17/24 05:16 WBC 6.82 RBC 4.03 L Hgb 12.9 L Hct 36.4 L MCV 90 MCH 32.0 MCHC 35.4 RDW 13.9 Plt Count 84 L MPV 10.5 Immature Gran % 1.0 Neutrophils % 71.9 Lymphocytes % 18.5 Monocytes % 7.6 Eosinophils % 0.4 Basophils % 0.6 Nucleated RBC % 0.0 Absolute Neutrophils 4.90 Absolute Lymphocytes 1.26 Absolute Monocytes 0.52 Absolute Eosinophils 0.03 Absolute Basophils 0.04 Sodium 138 Potassium 4.0 Chloride 106 Carbon Dioxide 26.2 Anion Gap 5.8 BUN 20 H Creatinine 0.9 Est GFR (CKD-EPI 2020) 112.11 Glucose 111 H Calcium 7.8 L Magnesium 2.1 Total Bilirubin 1.5 H AST 74 H ALT 87 H Alkaline Phosphatase 45 L Total Protein 6.6 Albumin 2.6 L Time Spent with Patient Time Spent with Patient: >50 minutes Time was spent: preparing to see the patient(eg.review tests), obtaining and/or reviewing separately otained hiistory, ordering medications,tests, procedures, referring, communicating with other health wild animal caretaker, indepentently interpreting results, counseling the patient and care coordination
[2024-06-17 12:19] VITALS: BP 129/82; PULSE 87; RESP 16; TEMP 36.6; O2SAT 97
[2024-06-17 15:31] VITALS: BP 137/90; PULSE 86; RESP 16; TEMP 36.6; O2SAT 99
[2024-06-17 19:17] VITALS: BP 125/79; PULSE 95; RESP 19; TEMP 38.9; O2SAT 97
[2024-06-17] MEDS: Acetaminophen 500 MG TAB 1000 MG PO (19:38)
[2024-06-17] MEDS: Ibuprofen 600 MG TAB PO (19:39)
[2024-06-17] MEDS: Milk of Magnesia 30 ML CUP PO (19:40)
[2024-06-17 22:54] VITALS: BP 110/72; PULSE 98; RESP 19; TEMP 37.4; O2SAT 95
[2024-06-18 03:03] VITALS: BP 133/91; PULSE 89; RESP 20; TEMP 36.8; O2SAT 97
[2024-06-18 06:30] LABS: Abs Immature Grans 0.04 10^3/uL (0.0-0.06); Absolute Basophil Count 0.05 10^3/uL (0.0-0.2); Absolute Eosinophil Count 0.11 10^3/uL (0.0-0.7); Absolute Lymphocyte Count 1.84 10^3/uL (1.2-3.4); Absolute Monocyte Count 0.98 10^3/uL (0.1-0.8); Absolute Neutrophil Count 4.45 10^3/uL (1.2-6.7); Basophils % 0.7 %; Eosinophils % 1.5 %; HCT 34.8 % (40.0-50.0); HGB 12.5 g/dL (13.5-17.5); Immature Grans % 0.5 %; Lymphocytes % 24.6 %; MCH 31.9 pg (27.0-33.0); MCHC 35.9 % (32.0-36.0); MCV 89 fL (80-95); Monocytes % 13.1 %; Neutrophils % 59.6 %; RBC 3.92 10^6/uL (4.36-5.78); RDW 13.6 % (11.8-14.1); RDW-SD 44.5 fL; WBC 7.47 10^3/uL (4.4-10.8)
[2024-06-18 06:45] LABS: Platelet Count 92 10^3/uL (130-400)
[2024-06-18 07:05] LABS: C-Reactive Protein 14.93 mg/dL (<or=0.5)
[2024-06-18 07:06] LABS: ALT 76 U/L (16-63); AST 60 U/L (15-37); Albumin 2.6 g/dL (3.4-5.0); Alkaline Phosphatase 57 U/L (46-116); Anion Gap 6.2 mmol/L (3-11); BUN 16 mg/dL (7-18); Bilirubin, Total 1.2 mg/dL (0.2-1.0); CO2 25.8 mmol/L (21.0-32.0); CREATININE 0.8 mg/dL (0.70-1.30); Calcium 8.3 mg/dL (8.5-10.1); Chloride 107 mmol/L (98-107); Estimated GFR 116.17 (mL/min/1.73m2); Glucose 100 mg/dL (74-106); Potassium 3.8 mmol/L (3.5-5.1); Sodium 139 mmol/L (136-145); Total Protein 6.8 g/dL (6.4-8.2)
[2024-06-18 08:00] VITALS: BP 125/86; PULSE 78; RESP 17; TEMP 36.3; O2SAT 97
[2024-06-18] MEDS: Docusate Sodium 100 MG CAP PO ×2 (08:17→20:28)
[2024-06-18] MEDS: Buprenorphine/Naloxone 8 mg/2 mg FILM 2 EACH SL (08:17)
[2024-06-18] MEDS: Famotidine 20 MG TAB PO ×2 (08:17→20:28)
[2024-06-18] MEDS: CEFEPIME 2 GM in Normal Saline 100 ML IVPB ×2 (08:17→17:00)
[2024-06-18] MEDS: Buprenorphine/Naloxone 2 mg/0.5 mg FILM 2 EACH SL (08:17)
[2024-06-18] MEDS: Normal Saline Flush 10 ML SYR IVP ×2 (08:20→20:28)
[2024-06-18] MEDS: DOXYCYCLINE 100 MG in Normal Saline 100 ML IVPB (09:53)
--- NOTE | 2024-06-18 10:31 | NUR.NOTE ---
patient is Axox4, VSS, NSR on tele, patient has had febrile event each of the last two nights with resolve from ibuprofen, only changes this AM from prior shifts is that RLE cellulitis is now weeping, rash/boil like rash is still persistent, swabbed and pending possible aerobic wound cx order from [employer]. Patient seems to have more energy this AM, still no BM x4 days but refusing BM meds other than colace. Minimal appetite, possibly related to hep C/infectious process, POC is to continue on IV abx, BCxs with NGTD x48hrs, independently ambulatory. Reports no changes to RLE sensation or pain this AM. Call barrett in reach, bed low/locked, branch officer at bedside. Nursing Note:
[2024-06-18] MEDS: VANCOMYCIN/WATER (PEG) 1.5 GM/300 ML BAG IVPB (11:06)
[2024-06-18 11:21] VITALS: BP 120/88; PULSE 81; RESP 16; TEMP 36.4; O2SAT 99
--- NOTE | 2024-06-18 12:59 | W.PM.PROGNOT ---
Date of Service Date of service: 06/18/24 Time of Service: 12:59 Assessment and Plan Assessment and plan (1) Severe sepsis: Status: Resolved Assessment and plan: On admission-Sepsis criteria met with WBC > 12 and tachycardia > 90 w HR 104 -Source :RLE cellulitis Severity criteria met with Lactate > 2 at 3.8 then down to 3.2 Blood Cx negative to date Will discontinue doxycycline as patient has no respiratory symptoms and sepsis due to cellulitis (2) Cellulitis of right lower extremity: Start date: 06/15/24 Status: Acute Assessment and plan: No subcutaneous emphysema over his right leg as per imaging Erythema swelling and pain improving Continue cefepime, vancomycin changed to linezolid oral. Follow inflammatory markers If symptoms continue to improve continue to de-escalate antibiotics to complete a 10 to 14-day course (3) ISIS (acute kidney injury): Status: Acute Assessment and plan: Cr at 1.6 on admission in the setting of severe sepsis- no prior history of CKD-Cr normalized to 0.8 after receiving IV fluids Stable tolerating good oral intake Continue to avoid nephrotoxic drugs and follow labs (4) Opioid use disorder: Status: Chronic Assessment and plan: Continue outpatient dosing . Suboxone dosing confirmed by pharmacy with the skilled nursing (5) Chronic hepatitis C: Status: Chronic Assessment and plan: PCP f/u as patient is unaware of his status of hepatitis C LFT's are elevated - will trend Down trend in LFT's PT/INR is slightly elevated on admission - no bleeding will not repeat at this time Ongoing thromocytopenia 124 on admission and 84 today most likely d/t hemodilution- will continue to monitor (6) Morbid obesity: Status: Acute Assessment and plan: BMI 43.5 kg/m2 heart healthy diet Nutrition consult- recommendation for protein and veggies with smaller emphasis on starches offered and avoid juice! PT would benefit from trial of GLP-1. -vitamin D lab due to risk of deficiency with long hours without light inside as well as increased need due to obesity. Counseled on weight management Discussion to be continue with PCP as food choice are limited in present living situation (7) Anxiety disorder: Status: Chronic Assessment and plan: Continue home dose of hydroxyzine as needed. (8) Constipation: Status: Acute Assessment and plan: relistor added Continue to monitor (9) GERD (gastroesophageal reflux disease): Status: Chronic Assessment and plan: Ongoing oral Pepcid Discussed w Dr Chandler Subjective Subjective Patient reports: no new complaints, feels better, tolerating liquids well, tolerating a regular diet, no bowel movement and afebrile (Max temp overnight 37.4) Exam Narrative Exam Narrative: Chronically ill-appearing male older than stated age no acute distress obese head is atraumatic eyes nonicteric noninjected oral mucosas moist respirations even unlabored cardiovascular regular rate and rhythm skin is pale warm dry well-perfused abdomen obese soft nontender bilateral lower extremities edema right greater than left. Erythema well within skin markings open blisters anterior aspect right lower extremity weeping yellow drainage. Neurologic awake alert oriented no focal deficits psychiatric appropriate mood and affect Objective Last Vital Signs Temp 36.4 C L 06/18/24 11:21 Pulse 81 06/18/24 11:21 Resp 16 06/18/24 11:21 BP 120/88 06/18/24 11:21 Pulse Ox 99 06/18/24 11:21 Laboratory Results - last 24 hr 06/18/24 06:23 WBC 7.47 RBC 3.92 L Hgb 12.5 L Hct 34.8 L MCV 89 MCH 31.9 MCHC 35.9 RDW 13.6 Plt Count 92 L MPV 10.0 Immature Gran % 0.5 Neutrophils % 59.6 Lymphocytes % 24.6 Monocytes % 13.1 Eosinophils % 1.5 Basophils % 0.7 Nucleated RBC % 0.0 Absolute Neutrophils 4.45 Absolute Lymphocytes 1.84 Absolute Monocytes 0.98 H Absolute Eosinophils 0.11 Absolute Basophils 0.05 Sodium 139 Potassium 3.8 Chloride 107 Carbon Dioxide 25.8 Anion Gap 6.2 BUN 16 Creatinine 0.8 Est GFR (CKD-EPI 2020) 116.17 Glucose 100 Calcium 8.3 L Total Bilirubin 1.2 H AST 60 H ALT 76 H Alkaline Phosphatase 57 C-Reactive Protein 14.93 H Total Protein 6.8 Albumin 2.6 L Time Spent with Patient Time Spent with Patient: 35-49 minutes Time was spent: preparing to see the patient(eg.review tests), obtaining and/or reviewing separately otained hiistory, ordering medications,tests, procedures, indepentently interpreting results and counseling the patient
[2024-06-18 13:29] LABS: Lab Add On Test DONE
[2024-06-18 15:08] VITALS: BP 127/84; PULSE 79; RESP 17; TEMP 37.4; O2SAT 97
[2024-06-18 18:32] LABS: Vancomycin, Peak 18.6 ug/mL (25.0-40.0)
[2024-06-18 18:57] VITALS: BP 145/90; PULSE 83; RESP 18; TEMP 38.1; O2SAT 97
[2024-06-18] MEDS: Ibuprofen 600 MG TAB PO (20:28)
[2024-06-18] MEDS: Linezolid 600 MG TAB PO (23:09)
[2024-06-18 23:34] VITALS: BP 122/75; PULSE 97; RESP 20; TEMP 38.5; O2SAT 94
--- NOTE | 2024-06-19 | DI.CT_ITS ---
Exam(s) CT ABD AORTA CTA W RUNOFF EXAM: CT ABD AORTA CTA W RUNOFF CLINICAL HISTORY: DVT RLE. TECHNIQUE: Imaging Protocol: Axial computed tomography images with coronal and sagittal reformatted images were created and reviewed CONTRAST MATERIAL: Intravenous: Omnipaque 350 Contrast volume:150 mL Oral: None COMPARISON: CR,XR XR TIB/FIB RT from 06/15/2024 FINDINGS: Visualized lung bases are clear. Also no pleural effusions. Heart size is normal. There is no pericardial effusion. ABDOMEN: There is no evidence of abdominal aortic aneurysm nor dissection.There is no aneurysmal dilatation of the common iliac arteries.The celiac and superior mesenteric arteries are patent.There is no signifi cant atherosclerotic disease in the abdominal aorta nor at the level the aortic bifurcation and the c ommon and external iliac arteries are patent as are the internal iliac arteries. There is no stenosi s nor aneurysm of these vessels and no dissection. The common femoral arteries are also patent bilat erally. Gee SFA arteries are patent throughout the length of the thighs. There is no significant stenosis o f these vessels and both SFAs are continuous with patent bilateral popliteal arteries. There is no s ignificant stenosis nor aneurysms of the popliteal arteries. Both tibioperoneal trunks are patent an d there is no significant stenosis at at the origin of the anterior and posterior tibial arteries whi ch are both patent throughout the length of the calves. Thin bilateral peroneal artery is also paten t. There is no evidence of gas within the soft tissues of the feet and no evidence of osteomyelitis. There is, however, asymmetric swelling and edema throughout the right lower extremity both above and below the knee, although most prominent below the level of the knee. There is no knee joint effusion . There is no distinct abscess. There phlebolith evident anterior to the right tibia. In the right popliteal fossa the right popliteal vein is not visualized. It appears unremarkable in left popliteal fossa. There is no ascites. LIVER: Severely hypodense implying severe steatosis. There no discrete focal hepatic lesions. GALLBLADDER/BILIARY: Mildly distended but not edematous and does not contain radiopaque calculi. CBD is not dilated. PANCREAS: No evidence of pancreatic mass nor dilatation of the pancreatic duct. SPLEEN: Spleen is enlarged measuring 14.5 cm craniocaudal. No obvious splenic lesions. ADRENALS: There are no significant adrenal masses. KIDNEYS: No cysts evident. No calculi nor hydronephrosis. No solid renal masses. ABDOMINAL AORTA: The abdominal aorta is not enlarged. LYMPH NODES: There is no retroperitoneal nor para-aortic adenopathy. No obvious mesenteric masses. ABDOMINAL WALL: No evidence of significant anterior abdominal wall hernia. GI: There is no evidence of bowel obstruction, free air, nor abscess. PELVIS: LYMPH NODES: There is no intrapelvic nor inguinal adenopathy. GI: No evidence of appendicitis.No evidence of sigmoid diverticulitis. URINARY BLADDER: No calculi nor masses evident REPRODUCTIVE: Prostate gland not enlarged. Seminal vesicles unremarkable. OSSEOUS: No significant osseous lesions. No fractures. IMPRESSION: 1. No evidence of significant atherosclerotic disease of the abdominal aorta and aortoiliac segments. The arteries of both lower extremities are patent without evidence of significant stenosis, dissect ion, nor occlusion and there is three-vessel runoff in both calves. 2. There is edema throughout most of the right lower extremity. No radiopaque foreign body. No dist inct abscess. The right popliteal vein is collapsed (when compared to the opposite side). If there is clinical concern for DVT in the right lower extremity than would recommend Doppler ultrasound stud y. 3. Hepatic steatosis, hepatomegaly and splenomegaly. No ascites. RADIATION DOSE DELIVERED: 1,464.55mGy.cm Total DLP DATA REPOSITORY: All CT scans at this facility are submitted to the National Radiology Data Registry (NRDR) Dose Index Registry (DIR) with the [employer] (A[employer]). RADIATION OPTIMIZATION: All CT scans at this facility use at least one of these dose optimization te chniques: automated exposure control; mA and/or kV adjustment per patient size (includes targeted exa ms where dose is matched to clinical indication); or iterative reconstruction.
[2024-06-19] MEDS: Acetaminophen 500 MG TAB 1000 MG PO (00:24)
[2024-06-19] MEDS: CEFEPIME 2 GM in Normal Saline 100 ML IVPB ×3 (00:25→16:34)
[2024-06-19] MEDS: Normal Saline Flush 10 ML SYR IVP ×3 (00:26→19:35)
[2024-06-19 00:30] VITALS: TEMP 37.2
[2024-06-19 03:03] VITALS: BP 119/81; PULSE 75; RESP 20; TEMP 35.8; O2SAT 96
[2024-06-19] MEDS: Buprenorphine/Naloxone 8 mg/2 mg FILM 2 EACH SL (09:02)
[2024-06-19] MEDS: Famotidine 20 MG TAB PO ×2 (09:02→19:35)
[2024-06-19] MEDS: Buprenorphine/Naloxone 2 mg/0.5 mg FILM 2 EACH SL (09:02)
[2024-06-19] MEDS: Docusate Sodium 100 MG CAP PO (09:02)
[2024-06-19] MEDS: Linezolid 600 MG TAB PO ×2 (09:02→19:35)
--- NOTE | 2024-06-19 09:37 | CMPROGNOTE_ITS ---
Date of service: 06/19/24 Time of Service: 09:37 Care Management Progress Note Progress Note Text Progress Note Text: Ramses continues to be closely monitored and treated for RLL cellulites. He had a temp of 38.5 overnight and will need to be afebrile for 24 hrs in order to discharge. Wound culture and wound consults are pending, CM will follow and update Arabella at the correctional facility. Discharge Potential Discharge Needs: PCP F/U Appt Anticipated Barriers to Discharge: None Identified Patient/Family Education Needs: Review discharge instructions, discuss Ask Me Three Transportation: Private vehicle Plan: Ramses will return to longterm when medically cleared. He will follow up with the facility providers and plan of care and transport with corrections officers. CM will follow and continue to support discharge planning. Social Determinants of Health Screening Social Determinants of health last assessed in clinic: 06/15/24 Will the Patient Participate in the Screening?: Declined to provide Do you worry about having a steady place to live?: no Problems where you live: no known problems In the past 12 months, have you had to go without electric, gas, oil or water in your home?: no Has lack of transportation kept you from medical appointments or from doing things needed for daily living?: no Has anyone in your life made you feel unsafe or unsupported?: no How hard is it for you to pay for the very basics like food, housing, medical care, and heating? Would you say it is:: Not hard at all Do you want help finding or keeping work or a job?: I do not need or want help If for any reason you need help with day-to-day activities such as bathing, preparing meals, shopping, managing finances, etc., do you get the help you need?: I don?t need any help How often do you feel lonely or isolated from those around you?: Never Do you speak a language other than Samoan at home?: No Does the patient want assistance with any of the above?: No
[2024-06-19 10:51] LABS: C-Reactive Protein 166.6 mg/L (<=10.0)
[2024-06-19 11:00] LABS: Abs Immature Grans 0.04 10^3/uL (0.0-0.06); Absolute Basophil Count 0.04 10^3/uL (0.0-0.2); Absolute Eosinophil Count 0.13 10^3/uL (0.0-0.7); Absolute Lymphocyte Count 1.26 10^3/uL (1.2-3.4); Absolute Monocyte Count 0.83 10^3/uL (0.1-0.8); Absolute Neutrophil Count 4.79 10^3/uL (1.2-6.7); Basophils % 0.6 %; Eosinophils % 1.8 %; HCT 38.7 % (40.0-50.0); HGB 13.8 g/dL (13.5-17.5); Immature Grans % 0.6 %; Lymphocytes % 17.8 %; MCH 31.8 pg (27.0-33.0); MCHC 35.7 % (32.0-36.0); MCV 89 fL (80-95); MPV 10.1 fL (8.0-11.0); Monocytes % 11.7 %; Neutrophils % 67.5 %; Platelet Count 109 10^3/uL (130-400); RBC 4.34 10^6/uL (4.36-5.78); RDW 13.5 % (11.8-14.1); RDW-SD 43.8 fL; WBC 7.09 10^3/uL (4.4-10.8)
[2024-06-19 11:10] LABS: Anion Gap 7.8 mmol/L (3-11); BUN 14 mg/dL (7-18); CO2 26.2 mmol/L (21.0-32.0); CREATININE 0.9 mg/dL (0.70-1.30); Chloride 105 mmol/L (98-107); Estimated GFR 112.11 (mL/min/1.73m2); Glucose 113 mg/dL (74-106); Potassium 3.9 mmol/L (3.5-5.1); Sodium 139 mmol/L (136-145)
[2024-06-19 11:21] VITALS: BP 128/90; PULSE 84; RESP 18; TEMP 37.4; O2SAT 96
[2024-06-19 16:10] VITALS: BP 138/83; PULSE 94; RESP 18; TEMP 39; O2SAT 98
--- NOTE | 2024-06-19 17:51 | PGE_ITS ---
Date of Service Date of service: 06/19/24 Time of Service: 12:00 Assessment and Plan Assessment and plan (1) Severe sepsis: Start date: 06/19/24 Status: Resolved Assessment and plan: On admission-Sepsis criteria met with WBC > 12 and tachycardia > 90 w HR 104 -Source :RLE cellulitis Severity criteria met with Lactate > 2 at 3.8 then down to 3.2 Blood Cx negative to date Will discontinue doxycycline as patient has no respiratory symptoms and sepsis due to cellulitis (2) Cellulitis of right lower extremity: Start date: 06/19/24 Status: Acute Assessment and plan: No subcutaneous emphysema over his right leg as per imaging but progressing erythema in PM today Erythema and swelling are worsening CTA run off for DVT and perfusion Might need a surgical consult if increased pain - for ACS unlikely at this time Continue cefepime, linezolid oral. Follow inflammatory markers -CRP down trending consider CPK If symptoms continue to improve continue to de-escalate antibiotics to complete a 10 to 14-day course (3) ISIS (acute kidney injury): Status: Acute Assessment and plan: Imropoving -Cr at 1.6 on admission in the setting of severe sepsis- no prior history of CKD-Cr normalized to 0.8 after receiving IV fluids Stable tolerating good oral intake CMP in AM Avoid nephrotoxic drugs and follow labs (4) Opioid use disorder: Status: Chronic Assessment and plan: Continue outpatient dosing . with suboxone Suboxone dosing confirmed by pharmacy with the residential (5) Chronic hepatitis C: Status: Chronic Assessment and plan: PCP f/u as patient is unaware of his status of hepatitis C LFT's are elevated - will trend Down trend in LFT's initially CMP in AM PT/INR is slightly elevated on admission - no bleeding will not repeat at this time Ongoing thromocytopenia 124 on admission and 109 today- will continue to monitor (6) Morbid obesity: Status: Acute Assessment and plan: BMI 43.5 kg/m2 heart healthy diet Nutrition consult- recommendation for protein and veggies with smaller emphasis on starches offered and avoid juice! PT would benefit from trial of GLP-1. -vitamin D lab due to risk of deficiency with long hours without light inside as well as increased need due to obesity- level pending . Counseled on weight management ealier in the stay Discussion to be continue with PCP as food choice are limited in present living situation (7) Anxiety disorder: Status: Chronic Assessment and plan: Ongoing home dose of hydroxyzine as needed. (8) Constipation: Status: Acute Assessment and plan: Continue colace TID Relistor given once and effective on 06/18/24 Continue to monitor (9) GERD (gastroesophageal reflux disease): Status: Chronic Assessment and plan: On oral Pepcid Discussed w Dr Chandler Subjective Subjective Patient reports: tolerating liquids well, tolerating a regular diet, voiding w/o difficulty, bowel movement and fever; denies diarrhea, nausea, vomiting or shortness of breath (overnight and in PM) Exam Narrative Exam Narrative: Constitutional The patient without acute distress and has obese body habitus Neuro:alert and oriented X4 Resp:Clear lung bilaterally Cardio: regular rhythm, S1, S2,bilaterally positive radial and dorsalis pedis pulses GI: Abdomen is not distended, non- tender , bowel sounds are present Integumentary: Erythema and blisters to RLE , large one draining serous fluid, increased redness and swelling in PM - ROM intact Extremities: strength 5/5 to bilateral lower and upper extremities Psych: RASS 0, congruent mood and normal-flat affect. Objective Last Vital Signs Temp 39.0 C H 06/19/24 16:10 Pulse 94 H 06/19/24 16:10 Resp 18 06/19/24 16:10 BP 138/83 06/19/24 16:10 Pulse Ox 98 06/19/24 16:10 Laboratory Results - last 24 hr 06/15/24 06/18/24 06/19/24 22:25 14:10 10:30 WBC 7.09 RBC 4.34 L Hgb 13.8 Hct 38.7 L MCV 89 MCH 31.8 MCHC 35.7 RDW 13.5 Plt Count 109 L MPV 10.1 Immature Gran % 0.6 Neutrophils % 67.5 Lymphocytes % 17.8 Monocytes % 11.7 Eosinophils % 1.8 Basophils % 0.6 Nucleated RBC % 0.0 Absolute Neutrophils 4.79 Absolute Lymphocytes 1.26 Absolute Monocytes 0.83 H Absolute Eosinophils 0.13 Absolute Basophils 0.04 Sodium Potassium Chloride Carbon Dioxide Anion Gap BUN Creatinine Est GFR (CKD-EPI 2020) Glucose Calcium C-Reactive Protein 166.6 H Vancomycin Peak 18.6 L 06/19/24 10:42 WBC RBC Hgb Hct MCV MCH MCHC RDW Plt Count MPV Immature Gran % Neutrophils % Lymphocytes % Monocytes % Eosinophils % Basophils % Nucleated RBC % Absolute Neutrophils Absolute Lymphocytes Absolute Monocytes Absolute Eosinophils Absolute Basophils Sodium 139 Potassium 3.9 Chloride 105 Carbon Dioxide 26.2 Anion Gap 7.8 BUN 14 Creatinine 0.9 Est GFR (CKD-EPI 2020) 112.11 Glucose 113 H Calcium 9.0 C-Reactive Protein Vancomycin Peak Time Spent with Patient Time Spent with Patient: >50 minutes Time was spent: preparing to see the patient(eg.review tests), obtaining and/or reviewing separately otained hiistory, ordering medications,tests, procedures, referring, communicating with other health career law clerk, indepentently interpreting results, counseling the patient and care coordination
[2024-06-19] MEDS: Omnipaque 350 MG/ML 50 ML BTL IJ (18:07)
[2024-06-19] MEDS: Normal Saline - Diluent 50 ML VIAL IJ ×2 (18:09→18:10)
[2024-06-19] MEDS: Omnipaque 350 MG/ML 500 ML BTL-Imaging package IJ (18:12)
[2024-06-19 19:32] VITALS: BP 148/85; PULSE 92; RESP 18; TEMP 35.9; O2SAT 95
[2024-06-19 23:29] VITALS: BP 133/84; PULSE 85; RESP 22; TEMP 37.5; O2SAT 97
[2024-06-20] VITALS (9 sets, daily range): BP systolic 119–147; BP diastolic 78–88; PULSE 83–98; RESP 16–22; TEMP 36.9–38.3; O2SAT 95–98
--- NOTE | 2024-06-20 | DI.US_ITS ---
Exam(s) US LOWER EXTREMITY VENOUS RT EXAM: US LOWER EXTREMITY VENOUS RT CLINICAL HISTORY: Cellulitis, not improving, DVT? TECHNIQUE: Right lower extremity venous ultrasound performed using grayscale, color-flow, and spectr al Doppler analysis. COMPARISON: No exams were available for comparison FINDINGS: The right common femoral, femoral and popliteal veins demonstrate normal compressibility, augmentatio n, and color Doppler. The posterior tibial and peroneal veins are patent. The saphenofemoral junctio n is unremarkable. There is no evidence of a Ojeda cyst. There are lymph nodes seen in the right gr oin in the right popliteal fossa. The largest is in the right groin and measures 4.1 x 1.7 x 3.2 cm. IMPRESSION: No evidence of a right lower extremity DVT. DATA REPOSITORY:
[2024-06-20] MEDS: Acetaminophen 500 MG TAB 1000 MG PO ×2 (03:52→13:48)
[2024-06-20 07:03] LABS: Abs Immature Grans 0.09 10^3/uL (0.0-0.06); HCT 34.3 % (40.0-50.0); HGB 12.3 g/dL (13.5-17.5); MCH 31.7 pg (27.0-33.0); MCHC 35.9 % (32.0-36.0); MCV 88 fL (80-95); MPV 10.4 fL (8.0-11.0); Platelet Count 140 10^3/uL (130-400); RBC 3.88 10^6/uL (4.36-5.78); RDW 13.3 % (11.8-14.1); WBC 7.64 10^3/uL (4.4-10.8)
[2024-06-20 07:17] LABS: ALT 56 U/L (16-63); AST 38 U/L (15-37); Albumin 2.8 g/dL (3.4-5.0); Alkaline Phosphatase 69 U/L (46-116); BUN 12 mg/dL (7-18); Bilirubin, Total 0.7 mg/dL (0.2-1.0); CREATININE 0.9 mg/dL (0.70-1.30); Calcium 8.8 mg/dL (8.5-10.1); Chloride 104 mmol/L (98-107); Estimated GFR 112.11 (mL/min/1.73m2); Glucose 119 mg/dL (74-106); Potassium 3.5 mmol/L (3.5-5.1); Sodium 138 mmol/L (136-145); Total Protein 7.3 g/dL (6.4-8.2)
[2024-06-20 07:19] LABS: C-Reactive Protein 10.95 mg/dL (<or=0.5); Creatine Kinase 39 U/L (39-308)
[2024-06-20 07:21] LABS: Atypical Lymphocytes % 3 %
[2024-06-20 07:22] LABS: Absolute Monocyte Count 0.99 10^3/uL (0.1-0.8)
[2024-06-20 07:23] LABS: Absolute Eosinophil Count 0.38 10^3/uL (0.0-0.7)
[2024-06-20 07:24] LABS: Absolute Basophil Count 0.08 10^3/uL (0.0-0.2)
[2024-06-20 07:25] LABS: Absolute Lymphocyte Count 1.68 10^3/uL (1.2-3.4); Absolute Neutrophil Count 4.51 10^3/uL (1.2-6.7); Diff Comment Manual Differential
[2024-06-20 07:26] LABS: RBC Morphology Normal
[2024-06-20] MEDS: Buprenorphine/Naloxone 8 mg/2 mg FILM 2 EACH SL (08:25)
[2024-06-20] MEDS: Buprenorphine/Naloxone 2 mg/0.5 mg FILM 2 EACH SL (08:26)
[2024-06-20] MEDS: Famotidine 20 MG TAB PO ×2 (08:26→19:55)
[2024-06-20] MEDS: Linezolid 600 MG TAB PO (08:26)
[2024-06-20] MEDS: Normal Saline Flush 10 ML SYR IVP ×2 (08:27→19:57)
[2024-06-20] MEDS: CEFEPIME 2 GM in Normal Saline 100 ML IVPB ×2 (08:28)
--- NOTE | 2024-06-20 08:53 | PGE_ITS ---
Date of Service Date of service: 06/20/24 Time of Service: 08:53 Assessment and Plan Assessment and plan (1) Severe sepsis: Start date: 06/19/24 Status: Resolved Assessment and plan: On admission-Sepsis criteria met with WBC > 12 and tachycardia > 90 w HR 104 -Source :RLE cellulitis Severity criteria met with Lactate > 2 at 3.8 then down to 3.2 Remains febrile Blood and wound Cx negative (2) Cellulitis of right lower extremity: Start date: 06/19/24 Status: Acute Assessment and plan: No subcutaneous emphysema stable to slightly improving erythema in PM today improving swelling - continue to elevate RLE CTA run off for DVT and perfusion was non diagnostics for DVT US of RLE as per recommendation was neagtive for DVT Negative CPK , no tremendous pain - most likely not ACS- will continue to mononitor Surgical consult discontinue cefepime and linezolid Start ceftriaxone - prevous cellulitis of RLE recently treated with green pill- seems to have been Keflex Follow inflammatory markers -CRP normal (3) ISIS (acute kidney injury): Status: Acute Assessment and plan: Resolved Cr at 1.6 on admission in the setting of severe sepsis- no prior history of CKD- Cr normalized to 0.8 after receiving IV fluids Stable tolerating good oral intake BMP in AM Avoid nephrotoxic drugs as much as possible (4) Ulcer of extremity due to chronic venous insufficiency: Status: Acute Assessment and plan: negative for DVT, abscess Sx consult - Compression dressing ordered RLE elevation Consider SON study but no claudication- positive but weak pulse- lesion placement congruent with CVI (5) Chronic venous insufficiency of lower extremity: Status: Acute Assessment and plan: As above (6) Opioid use disorder: Status: Chronic Assessment and plan: Continue outpatient suboxone on admission, Suboxone dosing confirmed by pharmacy with the [facility] (7) Chronic hepatitis C: Status: Chronic Assessment and plan: PCP f/u as patient is unaware of his status of hepatitis C LFT's are elevated - will trend Ongoing down trend in LFT's- no further monitoring PT/INR is slightly elevated on admission - no bleeding will not repeat at this time Ongoing thromocytopenia 124 on admission and 140 today- will continue to monitor (8) Morbid obesity: Status: Acute Assessment and plan: BMI 43.5 kg/m2 Hgb A1C 5.3 and lipid panel still pending heart healthy diet Nutrition consult- recommendation for protein and veggies with smaller emphasis on starches offered and avoid juice! PT would benefit from trial of GLP-1. -vitamin D lab due to risk of deficiency with long hours without light inside as well as increased need due to obesity- level pending . Counseled on weight management earlier in the stay Discussion to be continue with PCP as food choice are limited in present living situation (9) Anxiety disorder: Status: Chronic Assessment and plan: Conotnue outpatient dose of hydroxyzine as needed. (10) Constipation: Status: Acute Assessment and plan: Continue colace BID Relistor given once and effective on 06/18/24 Continue to monitor (11) GERD (gastroesophageal reflux disease): Status: Chronic Assessment and plan: continue oral Pepcid Discussed w Dr Chandler (12) On deep vein thrombosis (DVT) prophylaxis: Status: Acute Assessment and plan: On LMWH Platelets 124 on admit now [address] Chandler Subjective Subjective Patient reports: tolerating liquids well, tolerating a regular diet, voiding w/o difficulty, bowel movement and fever; denies diarrhea, nausea, vomiting or shortness of breath (overnight and in PM) Exam Narrative Exam Narrative: Constitutional The patient without acute distress and has obese body habitus Neuro:alert and oriented X4 Resp:Clear lung bilaterally Cardio: regular rhythm, S1, S2, positive radial right dorsalis pedis pulse GI: Abdomen is not distended, non- tender , bowel sounds are present Integumentary: Ongoing erythema and blisters to RLE - improving induration at groin level and upper leg , ongoing serous fluid drainage,ROM intact -CELIA bandage on Extremities: strength 5/5 to bilateral lower and upper extremities Psych: RASS 0, congruent mood and normal-flat affect. Objective Last Vital Signs Temp 36.9 C 06/20/24 07:51 Pulse 98 H 06/20/24 03:38 Resp 16 06/20/24 07:51 BP 119/82 06/20/24 07:51 Pulse Ox 96 06/20/24 07:51 Laboratory Results - last 24 hr 06/15/24 06/19/24 06/19/24 22:25 10:30 10:42 WBC 7.09 RBC 4.34 L Hgb 13.8 Hct 38.7 L MCV 89 MCH 31.8 MCHC 35.7 RDW 13.5 Plt Count 109 L MPV 10.1 Immature Gran % 0.6 Neutrophils % 67.5 Lymphocytes % 17.8 Atypical Lymphs % Monocytes % 11.7 Eosinophils % 1.8 Basophils % 0.6 Nucleated RBC % 0.0 Absolute Neutrophils 4.79 Absolute Lymphocytes 1.26 Absolute Monocytes 0.83 H Absolute Eosinophils 0.13 Absolute Basophils 0.04 RBC Morphology Sodium 139 Potassium 3.9 Chloride 105 Carbon Dioxide 26.2 Anion Gap 7.8 BUN 14 Creatinine 0.9 Est GFR (CKD-EPI 2020) 112.11 Glucose 113 H Calcium 9.0 Total Bilirubin AST ALT Alkaline Phosphatase Creatine Kinase C-Reactive Protein 166.6 H Total Protein Albumin 06/20/24 06:34 WBC 7.64 RBC 3.88 L Hgb 12.3 L Hct 34.3 L MCV 88 MCH 31.7 MCHC 35.9 RDW 13.3 Plt Count 140 MPV 10.4 Immature Gran % Neutrophils % 59.0 Lymphocytes % 19.0 Atypical Lymphs % 3 Monocytes % 13.0 Eosinophils % 5.0 Basophils % 1.0 Nucleated RBC % 0.0 Absolute Neutrophils 4.51 Absolute Lymphocytes 1.68 Absolute Monocytes 0.99 H Absolute Eosinophils 0.38 Absolute Basophils 0.08 RBC Morphology Normal Sodium 138 Potassium 3.5 Chloride 104 Carbon Dioxide 27.0 Anion Gap 7.0 BUN 12 Creatinine 0.9 Est GFR (CKD-EPI 2020) 112.11 Glucose 119 H Calcium 8.8 Total Bilirubin 0.7 AST 38 H ALT 56 Alkaline Phosphatase 69 Creatine Kinase 39 C-Reactive Protein 10.95 H Total Protein 7.3 Albumin 2.8 L Time Spent with Patient Time Spent with Patient: >50 minutes Time was spent: preparing to see the patient(eg.review tests), obtaining and/or reviewing separately otained hiistory, ordering medications,tests, procedures, referring, communicating with other health health care marketing manager, indepentently interpreting results, counseling the patient and care coordination
--- NOTE | 2024-06-20 09:15 | PT.INTREAT ---
PT Notes Visit Reasons: sepsis, cellulitis
--- NOTE | 2024-06-20 09:15 | PTTR_ITS ---
PT Notes Visit Reasons: sepsis, cellulitis
--- NOTE | 2024-06-20 10:06 | CMPROGNOTE_ITS ---
Date of service: 06/20/24 Time of Service: 10:06 Care Management Progress Note Progress Note Text Progress Note Text: Ramses has been admitted to [facility] X 5 days for complications associated with RLL cellulites; he is febrile at and continues to require IV ABX and further medical work up. He will be discharged back to [facility] when medically cleared for discharge; which requires pt to be afebrile for 24hrs per Hospitalist. PT is ordered for today, Wound culture/consults are pending and the [facility] facility will need clear instructions for wound care on discharge. CM will follow and update Arabella at the [facility] facility. Discharge Potential Discharge Needs: Other (Correctional Facility Provider) Anticipated Barriers to Discharge: None Identified Patient/Family Education Needs: Review discharge instructions, discuss Ask Me Three Transportation: Facility Transport Plan: Ramses will discharge in c/o [facility] when medically cleared for discharge; [facility]rections will coordinate transportation. Will follow up with facility providers and discharge plan of care which includes Wound care instructions. CM will follow and continue to support discharge planning. Social Determinants of Health Screening Social Determinants of health last assessed in clinic: 06/15/24 Will the Patient Participate in the Screening?: Declined to provide Do you worry about having a steady place to live?: no Problems where you live: no known problems In the past 12 months, have you had to go without electric, gas, oil or water in your home?: no Has lack of transportation kept you from medical appointments or from doing things needed for daily living?: no Has anyone in your life made you feel unsafe or unsupported?: no How hard is it for you to pay for the very basics like food, housing, medical care, and heating? Would you say it is:: Not hard at all Do you want help finding or keeping work or a job?: I do not need or want help If for any reason you need help with day-to-day activities such as bathing, preparing meals, shopping, managing finances, etc., do you get the help you need?: I don?t need any help How often do you feel lonely or isolated from those around you?: Never Do you speak a language other than Malaysian at home?: No Does the patient want assistance with any of the above?: No
[2024-06-20 11:49] LABS: Hemoglobin A1C 5.3 % (<5.7)
[2024-06-20] MEDS: cefTRIAXone 2 GM/50 ML BAG IVPB (12:29)
[2024-06-20] MEDS: Lactobacillus Acidophilus CAP 1 CAP PO ×3 (12:29→19:55)
[2024-06-20] MEDS: Docusate Sodium 100 MG CAP PO ×2 (12:30→19:56)
[2024-06-20] MEDS: Enoxaparin 40 MG/0.4 ML SYR SC (12:30)
--- NOTE | 2024-06-20 15:08 | PT.INNT ---
PT Notes Visit Reasons: sepsis, cellulitis Patient verbalized that somebody came in and told him to stay off his R foot. PT reached out to hospitalist and SIDNEY Paz for clarification. SIDNEY Paz clarifeid that patient may be weight bearing as tolerated on the R LE. PT came back to see patient for PT evaluation as ordered.
--- NOTE | 2024-06-20 16:09 | PT.INIE ---
PT Notes Visit Reasons: sepsis, cellulitis Physical Therapy Inpatient Initial Evaluation Date: 06/20/2024 Referring Doctor: Rosaura Chung NP PT Orders: PT CONSULT: Eval/Treat Precautions: Fall. Standard. Activity as tolerated. Patient Profile/Admitting Diagnosis: 39-year-old male patient admitted for management of severe sepsis, R LE cellulitis, ISIS, Opiod use disorder, and anxiety disorder. PMHX: All Active Problems Severe sepsis (Acute) GERD (gastroesophageal reflux disease) (Chronic) Anxiety disorder (Chronic) Chronic hepatitis C (Chronic) Opioid use disorder (Chronic) Cellulitis of right lower extremity (Acute) Sepsis (Acute) Social History/Home Situation: Correctional facility resident at present. Close supervision of single officer at all times while on admisison. Equipment Owned/DME: None Subjective: Agreeable to PT consult. No report of pain. Did verbalize some stiffness in R leg because of swelling. Objective: General Observation: Erythema and swelling to TR leg and foot. Mental Status: Alert and oriented as to person, place, time, and purpose. Able to pay attention, focus, and respond appropriately. Pain: None reported Vital Signs: Closely monitored by nursing staff ROM: Right Upper Extremity: Shoulder Flexion WFL. Shoulder abduction WFL. Elbow flexion WFL. Wrist flexion WFL. Functional opening and closing of hand WFL. Left Upper Extremity: Shoulder Flexion WFL. Shoulder abduction WFL. Elbow flexion WFL. Wrist flexion WFL. Functional opening and closing of hand WFL. Right Lower Extremity: Hip flexion WFL. Hip abduction WFL. Knee flexion WFL. Ankle dorsiflexion WFL. Ankle plantarflexion WFL. Left Lower Extremity: Hip flexion WFL. Hip abduction WFL. Knee flexion WFL. Ankle dorsiflexion WFL. Ankle plantarflexion WFL. Strength: Right Upper Extremity: Shoulder flexors 5/5. Shoulder abductors 5/5. Elbow flexors 5/5. Elbow extensors 5/5. Plate Conditioner strong. Left Upper Extremity: Shoulder flexors 5/5. Shoulder abductors 5/5. Elbow flexors 5/5. Elbow extensors 5/5. Plate Conditioner strong. Right Lower Extremity: Hip flexors 5/5. Hip abductors 5/5. Knee flexors 5/5. Knee extensors 5/5. Ankle dorsiflexors 4-/5. Ankle plantarflexors 4-/5. Left Lower Extremity: Hip flexors 5/5. Hip abductors 5/5. Knee flexors 5/5. Knee extensors 5/5. Ankle dorsiflexors 4-/5. Ankle plantarflexors 4-/5. Bed Mobility/Transfers: Rolling independent Supine to sit independent Sit to supine independent Sit to stand independent4- Stand to sit independent Bed to bedside commode independent Bedside commode to bed independent Bed to reclining chair independent Reclining chair to bed independent Gait: Independent with level surface ambulation of up to 400 feet without an AD. Balance: Static Sitting: Normal Dynamic Sitting: Normal Static Standing: Normal Dynamic Standing: Good Special Tests: Mobility Limitations Standardized Measure [facility] AM-PAC 6 clicks Basic Mobility Inpatient Short Form: Raw Score: 24 CMS Score: 0% deficit Informed Consent/Education: Patient was instructed in purpose of PT consult. Assessment: Patient is independent with level surface ambulation of up to 400 feet without any assistived devices. No services needed at this time. Goals: N/A. PT evaluation only. Plan of Care/Treatment Plan: N/A. PT evaluation only. DISCHARGE RECOMMENDATIONS: [X] Home with no services. [] Home with services [specify] [] Home with outpatient PT [] [] SNF for continued rehabilitation [] [] Long-Term Care [] [] SNF versus LTC based on ability to participate and progress [] TREATMENT CODE/TIME: 41018 x 17 minutes for 1 unit (15:50-16:07). Thank you for the opportunity to participate in the care of this patient. Sybil Lira PT, DPT, CLT [facility] [place], [place]
--- NOTE | 2024-06-20 19:18 | W.SURGCON ---
Date of service: 06/20/24 Time of Service: 19:18 Assessment and Plan Assessment and plan (1) Cellulitis of right lower extremity: Status: Acute Assessment and plan: Unclear etiology of Mr. Dobbins's cellulitis. No discernable fluid collections on exam for drainage. At this time, given the swelling there is significant subcutaneous swelling. Discussed with the patient the benefits of elevation and compression. Applied versatel wound contact layer, ABDs and CELIA wraps x 2. This should be changed 1-2x/day as needed for drainage. Continue IV abx The wound may require debridement in a day or two as the swelling goes down. Debriding the wound now will increase his drainage from the area, if the skin top layers are removed. Anticipate this tissue will slowly dry out/crust/scab as his swelling improves. Unsure if he would tolerate debridement at the bedside. Will reassess in the morning and will have a low threshold for proceeding with debridement. History of Present Illness Narrative: 39 y/o male with a history of GERD, obesity, Hep C and anxiety whom presented to the ER with a 2-3 day history of increasing redness over his right leg that was associated with fevers. He was admitted to the hospitalist service for IV abx and fluid resuscitation. Patient reports that last year he had a similar incident and that this resolved after about 4 days. He denies any knowledge of previous MRSA infection. ER cultured the wounds which did not show any growth. Patient states his right lower leg is tender to palpation and is progressively draining yellow fluid. He denies any fevers, chills or night sweats today. Denies any nausea or vomiting. Blood cultures are pending. PFSH All Active Problems (Updated 06/20/24 @ 11:35 by Rosaura Chung APRN) On deep vein thrombosis (DVT) prophylaxis (Acute) Ulcer of extremity due to chronic venous insufficiency (Acute) Chronic venous insufficiency of lower extremity (Acute) Constipation (Acute) ISIS (acute kidney injury) (Acute) Morbid obesity (Acute) GERD (gastroesophageal reflux disease) (Chronic) Anxiety disorder (Chronic) Chronic hepatitis C (Chronic) Opioid use disorder (Chronic) Cellulitis of right lower extremity (Acute) Sepsis (Acute) Social History Smoking risk assessment performed?: No Alcohol Intake: former Drug use: Current Sobriety Substance use type: former substance user and IV drugs Housing: other Do you feel safe at home: Yes Do you feel safe in your relationship?: Yes Additional Social history: inmate Exam Const General: cooperative and comfortable Orientation: alert and oriented x3 Resp Effort & Inspection: normal respiratory effort, no audible wheezes and no cough Skin Other: Significant erythema circumstantially around the right lower leg, greater along the anterior portion than the posterior. Outlined portion along the lan measures 12 cm long x 6 cm (superiorly); 4 cm (inferiorly) Raised, skin is boggy with palpation. No area of fluctulance or clear fluid collection that could be drained at this time. Results Last Vital Signs Temp 37.7 C H 06/20/24 15:20 Pulse 90 06/20/24 13:42 Resp 18 06/20/24 13:42 BP 133/78 06/20/24 13:42 Pulse Ox 98 06/20/24 13:42 Labs 06/20/24 06:34 06/20/24 06:34 Labs: Laboratory Results - last 24 hr 06/20/24 06/20/24 06:34 Unknown WBC 7.64 RBC 3.88 L Hgb 12.3 L Hct 34.3 L MCV 88 MCH 31.7 MCHC 35.9 RDW 13.3 Plt Count 140 MPV 10.4 Immature Gran % Neutrophils % 59.0 Lymphocytes % 19.0 Atypical Lymphs % 3 Monocytes % 13.0 Eosinophils % 5.0 Basophils % 1.0 Nucleated RBC % 0.0 Absolute Neutrophils 4.51 Absolute Lymphocytes 1.68 Absolute Monocytes 0.99 H Absolute Eosinophils 0.38 Absolute Basophils 0.08 RBC Morphology Normal Sodium 138 Potassium 3.5 Chloride 104 Carbon Dioxide 27.0 Anion Gap 7.0 BUN 12 Creatinine 0.9 Est GFR (CKD-EPI 2020) 112.11 Glucose 119 H Hemoglobin A1c 5.3 Calcium 8.8 Total Bilirubin 0.7 AST 38 H ALT 56 Alkaline Phosphatase 69 Creatine Kinase 39 C-Reactive Protein 10.95 H Total Protein 7.3 Albumin 2.8 L B. divergens/MO-1 PCR Cancelled Babesia duncani (PCR) Cancelled Babesia microti DNA PCR Cancelled Lyme Disease Antibody Cancelled E.chaffeensis DNA (PCR) Cancelled E.ewingii/canis DNA PCR Cancelled E.muris eauclairensis (PCR) Cancelled A. phagocytophilum (PCR) Cancelled Blood B. miyamotoi (PCR) Cancelled
[2024-06-20 20:09] LABS: Calculated LDL 63 mg/dL (<100); Cholesterol 104 mg/dL (<200); HDL Cholesterol 22 mg/dL (>or=40); Triglyceride 97 mg/dL (<150)
[2024-06-21] VITALS (7 sets, daily range): BP systolic 119–133; BP diastolic 73–96; PULSE 85–92; RESP 14–19; TEMP 35.4–37.2; O2SAT 95–96
[2024-06-21] MEDS: Enoxaparin 40 MG/0.4 ML SYR SC ×3 (00:52→23:53)
[2024-06-21 06:37] LABS: Abs Immature Grans 0.12 10^3/uL (0.0-0.06); Absolute Basophil Count 0.04 10^3/uL (0.0-0.2); Absolute Eosinophil Count 0.14 10^3/uL (0.0-0.7); Absolute Lymphocyte Count 2.08 10^3/uL (1.2-3.4); Absolute Monocyte Count 0.99 10^3/uL (0.1-0.8); Absolute Neutrophil Count 4.69 10^3/uL (1.2-6.7); Basophils % 0.5 %; Eosinophils % 1.7 %; HCT 34.5 % (40.0-50.0); HGB 12.4 g/dL (13.5-17.5); Immature Grans % 1.5 %; Lymphocytes % 25.8 %; MCHC 35.9 % (32.0-36.0); MCV 89 fL (80-95); MPV 9.7 fL (8.0-11.0); Monocytes % 12.3 %; Neutrophils % 58.2 %; Platelet Count 160 10^3/uL (130-400); RBC 3.87 10^6/uL (4.36-5.78); RDW 13.6 % (11.8-14.1); RDW-SD 44.1 fL; WBC 8.06 10^3/uL (4.4-10.8)
[2024-06-21 07:01] LABS: Anion Gap 8.7 mmol/L (3-11); BUN 11 mg/dL (7-18); CO2 26.3 mmol/L (21.0-32.0); CREATININE 0.8 mg/dL (0.70-1.30); Calcium 8.9 mg/dL (8.5-10.1); Chloride 104 mmol/L (98-107); Estimated GFR 116.17 (mL/min/1.73m2); Glucose 112 mg/dL (74-106); Potassium 3.7 mmol/L (3.5-5.1); Sodium 139 mmol/L (136-145)
[2024-06-21] MEDS: Lactobacillus Acidophilus CAP 1 CAP PO ×3 (09:37→19:41)
[2024-06-21] MEDS: Docusate Sodium 100 MG CAP PO ×2 (09:37→19:41)
[2024-06-21] MEDS: Famotidine 20 MG TAB PO ×2 (09:37→19:41)
[2024-06-21] MEDS: Buprenorphine/Naloxone 8 mg/2 mg FILM 2 EACH SL (09:38)
[2024-06-21] MEDS: Buprenorphine/Naloxone 2 mg/0.5 mg FILM 2 EACH SL (09:39)
--- NOTE | 2024-06-21 09:45 | CMPROGNOTE_ITS ---
Date of service: 06/21/24 Time of Service: 09:45 Care Management Progress Note Progress Note Text Progress Note Text: Ramses was sitting up in bed accompanied by a national insurance officer when CM met with him. He was polite but not very talkative. When asked how he was doing he said OK. He denied having any pain at this time. Ramses was admitted with sepsis and has been febrile until the last 24 hours. His last elevated temperature was noted to be yesterday (06/20/24) shortly before 2 pm. Per provider, when he has been afebrile for at least 24 hours, he may [facility]. Ramses did not appear to be pleased with that information. Discharge Potential Discharge Needs: Other (return to correction facility) Anticipated Barriers to Discharge: Medical Status Patient/Family Education Needs: Review discharge instructions, discuss Ask Me Three Transportation: Facility Transport Plan: Ramses will discharge to the [facility] when medically cleared. He may need to be transferred to a different facility if ferry terminal agent antibiotics or his medical condition require closer medical monitoring.Corrections staff will coordinate transportation. Ramses will follow up with facility providers and discharge plan of care which includes wound care instructions. CM will follow and continue to support discharge planning. Social Determinants of Health Screening Social Determinants of health last assessed in clinic: 06/15/24 Will the Patient Participate in the Screening?: Declined to provide Do you worry about having a steady place to live?: no Problems where you live: no known problems In the past 12 months, have you had to go without electric, gas, oil or water in your home?: no Has lack of transportation kept you from medical appointments or from doing things needed for daily living?: no Has anyone in your life made you feel unsafe or unsupported?: no How hard is it for you to pay for the very basics like food, housing, medical care, and heating? Would you say it is:: Not hard at all Do you want help finding or keeping work or a job?: I do not need or want help If for any reason you need help with day-to-day activities such as bathing, preparing meals, shopping, managing finances, etc., do you get the help you need?: I don?t need any help How often do you feel lonely or isolated from those around you?: Never Do you speak a language other than Croatian at home?: No Does the patient want assistance with any of the above?: No
--- NOTE | 2024-06-21 09:59 | W.PM.PROGNOT ---
Date of Service Date of service: 06/21/24 Time of Service: 09:59 Assessment and Plan Assessment and plan (1) Cardiac arrhythmia: Status: Acute Assessment and plan: 12:54 24-beat run VT vs SVT with aberrancy- asymptomatic- , HR 178 to 214for about 9 seconds, most likely no loss of perfusion CMP and Mag EKG no coronary occlusion Increase risk of ACS as per BMI , but A1C and lipids negative Will continue to monitor on telemetry Cardiology consult (2) Severe sepsis: Start date: 06/19/24 Status: Resolved Assessment and plan: On admission-Sepsis criteria met with WBC > 12 and tachycardia > 90 w HR 104 -Source :RLE cellulitis Severity criteria met with Lactate > 2 at 3.8 then down to 3.2 no further trending Febrile as of 06/20 in PM Blood and wound Cx negative Repeat blood Cx pending (3) Cellulitis of right lower extremity: Start date: 06/19/24 Status: Acute Assessment and plan: No subcutaneous emphysema- stable to slightly improving erythema in PM today improving swelling - continue to elevate RLE CTA run off for DVT and perfusion was non diagnostics for DVT US of RLE negative Negative CPK , no tremendous pain - most likely not acute compartment syndrome- will continue to mononitor Surgical consult completed:recommendations for -Elevation and compression -Dressing regimen -Abx continuation - No immediate debridement- might be necessary in 24-48 hours -Considering debridement at the bedside based on tolerance continue ceftriaxone - previous 9 months ago cellulitis of RLE treated with green pill- most likely Keflex Follow inflammatory markers -CRP normal on 06/22- will not repeat (4) ISIS (acute kidney injury): Status: Acute Assessment and plan: Resolved Cr at 1.6 on admission in the setting of severe sepsis- no prior history of CKD-Cr normalized to 0.8 after receiving IV fluids Stable tolerating good oral intake BMP in AM Avoid nephrotoxic drugs as much as possible (5) Ulcer of extremity due to chronic venous insufficiency: Status: Acute Assessment and plan: negative for DVT, abscess as per imaging Sx consult -see point 3 Ongoing compression dressing Continue RLE elevation Consider SON study but no claudication- positive but weak pulse- lesion placement congruent with CVI (6) Chronic venous insufficiency of lower extremity: Status: Acute Assessment and plan: As above (7) Opioid use disorder: Status: Chronic Assessment and plan: on outpatient dose of suboxone on admission, Suboxone dosing confirmed by pharmacy with the [facility] (8) Chronic hepatitis C: Status: Chronic Assessment and plan: PCP f/u as patient is unaware of his status of hepatitis C LFT's are elevated - will trend Ongoing down trend in LFT's- no further monitoring PT/INR is slightly elevated on admission - no bleeding will not repeat at this time Ongoing thromocytopenia 124 on admission and 140 today- will continue to monitor (9) Morbid obesity: Status: Acute Assessment and plan: BMI > 40 kg/m2 Hgb A1C 5.3 and lipid panel negative Ongoing heart healthy diet Nutrition consult- recommendation for protein and veggies with smaller emphasis on starches offered and avoid juice! PT would benefit from trial of GLP-1. -vitamin D lab result still pending - risk of deficiency with long hours without light inside as well as increased need due to obesity- Counseled on weight management earlier in the stay Discussion to be continue with PCP as food choice are limited in present living situation (10) Anxiety disorder: Status: Chronic Assessment and plan: Ongoing outpatient dose of hydroxyzine as needed. (11) Constipation: Status: Acute Assessment and plan: On colace BID Relistor given once and effective on 06/18/24 Continue to monitor (12) GERD (gastroesophageal reflux disease): Status: Chronic Assessment and plan: On oral famotidine Discussed w Dr Chandler (13) On deep vein thrombosis (DVT) prophylaxis: Status: Acute Assessment and plan: Ongoing LMWH Platelets 124 on admit now [address] Chandler Subjective Subjective Patient reports: tolerating liquids well, tolerating a regular diet, voiding w/o difficulty, bowel movement and fever; denies diarrhea, nausea, vomiting or shortness of breath (overnight and in PM) Exam Narrative Exam Narrative: Constitutional No acute distress and has obese body habitus Neuro:alert and oriented X4 Resp:Clear lung bilaterally Cardio: regular rhythm, S1, S2, positive radial right dorsalis pedis pulse -12:54 24-beat run VT vs SVT with aberrancy- asymptomatic GI: Abdomen is not distended, non- tender , bowel sounds are present Integumentary: Ongoing erythema and blisters to RLE - improving redness/ swelling at groin level and upper leg , serous fluid drainage,ROM intact Extremities: strength 5/5 to bilateral lower and upper extremities Psych: RASS 0, congruent mood and normal-flat affect. Skin Other: As per Sx consult on 06/20/24 Outlined portion along the lan measures 12 cm long x 6 cm (superiorly); 4 cm (inferiorly) Objective Last Vital Signs Temp 37 C 06/21/24 07:44 Pulse 92 H 06/21/24 07:44 Resp 18 06/21/24 07:44 BP 121/85 06/21/24 07:44 Pulse Ox 95 06/21/24 07:44 Laboratory Results - last 24 hr 06/20/24 06/20/24 06/21/24 06:34 Unknown 06:28 WBC 8.06 RBC 3.87 L Hgb 12.4 L Hct 34.5 L MCV 89 MCH 32.0 MCHC 35.9 RDW 13.6 Plt Count 160 MPV 9.7 Immature Gran % 1.5 Neutrophils % 58.2 Lymphocytes % 25.8 Monocytes % 12.3 Eosinophils % 1.7 Basophils % 0.5 Nucleated RBC % 0.0 Absolute Neutrophils 4.69 Absolute Lymphocytes 2.08 Absolute Monocytes 0.99 H Absolute Eosinophils 0.14 Absolute Basophils 0.04 Sodium 139 Potassium 3.7 Chloride 104 Carbon Dioxide 26.3 Anion Gap 8.7 BUN 11 Creatinine 0.8 Est GFR (CKD-EPI 2020) 116.17 Glucose 112 H Hemoglobin A1c 5.3 Calcium 8.9 Triglycerides 97 Total Cholesterol 104 LDL Cholesterol, Calc 63 HDL Cholesterol 22 B. divergens/MO-1 PCR Cancelled Babesia duncani (PCR) Cancelled Babesia microti DNA PCR Cancelled Lyme Disease Antibody Cancelled E.chaffeensis DNA (PCR) Cancelled E.ewingii/canis DNA PCR Cancelled E.muris eauclairensis (PCR) Cancelled A. phagocytophilum (PCR) Cancelled Blood B. miyamotoi (PCR) Cancelled Time Spent with Patient Time Spent with Patient: >50 minutes Time was spent: preparing to see the patient(eg.review tests), obtaining and/or reviewing separately otained hiistory, ordering medications,tests, procedures, referring, communicating with other health insurance healthcare consultant, indepentently interpreting results, counseling the patient and care coordination
[2024-06-21] MEDS: Normal Saline Flush 10 ML SYR IVP ×3 (12:08→19:42)
[2024-06-21] MEDS: cefTRIAXone 2 GM/50 ML BAG IVPB (12:09)
--- NOTE | 2024-06-21 13:00 | RT.EKG_ITS ---
APPROVED REPORT Exam: Resting ECG Reason for Exam: [facility] Patient Location: I HR:89 bpm ECG Measurements Heart Rate 89 AXIS OH 173 P 43 QRSd 100 QRS 52 QT 344 T 49 QTc 419 Conclusion Sinus rhythm...normal P axis, V-rate 50- 99 Normal Electrocardiogram
[2024-06-21 14:22] LABS: Anion Gap 7.8 mmol/L (3-11); BUN 12 mg/dL (7-18); CO2 28.2 mmol/L (21.0-32.0); CREATININE 0.7 mg/dL (0.70-1.30); Chloride 104 mmol/L (98-107); Estimated GFR 120.95 (mL/min/1.73m2); Glucose 126 mg/dL (74-106); Magnesium 1.9 mg/dL (1.8-2.4); Sodium 140 mmol/L (136-145)
[2024-06-21 14:36] LABS: Troponin I < 4 ng/L (<or=76)
[2024-06-21] MEDS: Metoprolol 12.5 MG TAB PO (19:41)
[2024-06-22 03:05] VITALS: BP 110/76; PULSE 77; RESP 18; TEMP 36; O2SAT 96
[2024-06-22 06:42] LABS: Abs Immature Grans 0.09 10^3/uL (0.0-0.06); Absolute Basophil Count 0.04 10^3/uL (0.0-0.2); Absolute Eosinophil Count 0.15 10^3/uL (0.0-0.7); Absolute Lymphocyte Count 2.15 10^3/uL (1.2-3.4); Absolute Monocyte Count 0.66 10^3/uL (0.1-0.8); Absolute Neutrophil Count 3.94 10^3/uL (1.2-6.7); Basophils % 0.6 %; Eosinophils % 2.1 %; HCT 38.3 % (40.0-50.0); HGB 13.5 g/dL (13.5-17.5); Immature Grans % 1.3 %; Lymphocytes % 30.6 %; MCH 31.9 pg (27.0-33.0); MCHC 35.2 % (32.0-36.0); MCV 91 fL (80-95); MPV 10.2 fL (8.0-11.0); Monocytes % 9.4 %; Platelet Count 195 10^3/uL (130-400); RBC 4.23 10^6/uL (4.36-5.78); RDW 13.4 % (11.8-14.1); WBC 7.03 10^3/uL (4.4-10.8)
[2024-06-22 07:14] LABS: ALT 50 U/L (16-63); AST 51 U/L (15-37); Albumin 2.8 g/dL (3.4-5.0); Alkaline Phosphatase 61 U/L (46-116); Anion Gap 6.7 mmol/L (3-11); BUN 11 mg/dL (7-18); CO2 30.3 mmol/L (21.0-32.0); CREATININE 0.7 mg/dL (0.70-1.30); Calcium 8.7 mg/dL (8.5-10.1); Chloride 102 mmol/L (98-107); Estimated GFR 120.95 (mL/min/1.73m2); Glucose 108 mg/dL (74-106); Potassium 3.8 mmol/L (3.5-5.1); Sodium 139 mmol/L (136-145); Total Protein 7.9 g/dL (6.4-8.2)
[2024-06-22 07:31] VITALS: BP 115/76; PULSE 82; RESP 16; TEMP 36.7; O2SAT 96
[2024-06-22 07:38] LABS: Bilirubin, Total 0.6 mg/dL (0.2-1.0)
[2024-06-22] MEDS: Famotidine 20 MG TAB PO (08:09)
[2024-06-22] MEDS: Lactobacillus Acidophilus CAP 1 CAP PO ×2 (08:09→15:45)
[2024-06-22] MEDS: Metoprolol 12.5 MG TAB PO (08:09)
[2024-06-22] MEDS: Buprenorphine/Naloxone 2 mg/0.5 mg FILM 2 EACH SL (08:09)
[2024-06-22] MEDS: Buprenorphine/Naloxone 8 mg/2 mg FILM 2 EACH SL (08:09)
[2024-06-22] MEDS: Normal Saline Flush 10 ML SYR IVP (08:22)
--- NOTE | 2024-06-22 08:34 | CCONE_ITS ---
Date of service: 06/22/24 Time of Service: 08:34 Assessment and Plan Assessment and plan (1) Cardiac arrhythmia: Status: Acute Assessment and plan: This was either nonsustained VT or supraventricular tachycardia with aberrancy. It does not really matter which because the ongoing treatment is supportive care, maintenance of appropriate electrolyte levels. The echocardiogram is appropriate and will be reviewed when available History of Present Illness History of Present Illness Chief Complaint: Cardiac evaluation Narrative: This is a 39-year-old man who was in the hospital about a week ago with sepsis on the basis of cellulitis of his right lower extremity. He is currently incarcerated and has a history of opioid use disorder and hepatitis C. While here in the hospital he was on telemetry monitoring. The other day he had a 24 beat run of wide-complex irregular tachycardia which was asymptomatic. EKG on admission and on June 21 have been within normal limits. Patient is not a good historian. He does not relate any significant cardiac history, no complaints of shortness of breath palpitations or chest pain. Review of Systems Cardiovascular Cardiovascular: Reports as per [facility] All Active Problems (Updated 06/22/24 @ 08:36 by Bea Carl MD) Cardiac arrhythmia (Acute) On deep vein thrombosis (DVT) prophylaxis (Acute) Ulcer of extremity due to chronic venous insufficiency (Acute) Chronic venous insufficiency of lower extremity (Acute) Constipation (Acute) ISIS (acute kidney injury) (Acute) Morbid obesity (Acute) GERD (gastroesophageal reflux disease) (Chronic) Anxiety disorder (Chronic) Chronic hepatitis C (Chronic) Opioid use disorder (Chronic) Cellulitis of right lower extremity (Acute) Sepsis (Acute) Social History Smoking risk assessment performed?: No Alcohol Intake: former Drug use: Current Sobriety Substance use type: former substance user and IV drugs Housing: other Do you feel safe at home: Yes Do you feel safe in your relationship?: Yes Additional Social history: inmate Exam Const Other: Obese looks stated age no acute distress Neck Other: Unable to assess JVP Resp Other: Lungs are grossly clear Cardio Other: Heart is regular no murmur or gallop Extrem Other: Right lower extremity is wrapped Results Last Vital Signs Temp 36.7 C 06/22/24 07:31 Pulse 82 06/22/24 07:31 Resp 16 06/22/24 07:31 BP 115/76 06/22/24 07:31 Pulse Ox 96 06/22/24 07:31 Labs 06/22/24 06:02 06/22/24 06:02 Labs: Laboratory Results - last 24 hr 06/21/24 06/22/24 13:57 06:02 WBC 7.03 RBC 4.23 L Hgb 13.5 Hct 38.3 L MCV 91 MCH 31.9 MCHC 35.2 RDW 13.4 Plt Count 195 MPV 10.2 Immature Gran % 1.3 Neutrophils % 56.0 Lymphocytes % 30.6 Monocytes % 9.4 Eosinophils % 2.1 Basophils % 0.6 Nucleated RBC % 0.0 Absolute Neutrophils 3.94 Absolute Lymphocytes 2.15 Absolute Monocytes 0.66 Absolute Eosinophils 0.15 Absolute Basophils 0.04 Sodium 140 139 Potassium 4.0 3.8 Chloride 104 102 Carbon Dioxide 28.2 30.3 Anion Gap 7.8 6.7 BUN 12 11 Creatinine 0.7 0.7 Est GFR (CKD-EPI 2020) 120.95 120.95 Glucose 126 H 108 H Calcium 9.0 8.7 Magnesium 1.9 Total Bilirubin 0.6 AST 51 H ALT 50 Alkaline Phosphatase 61 Troponin I < 4 Total Protein 7.9 Albumin 2.8 L
[2024-06-22 11:21] VITALS: BP 116/81; PULSE 74; RESP 16; TEMP 36.1; O2SAT 98
[2024-06-22] MEDS: Cefpodoxime 200 MG TAB 400 MG PO (11:58)
--- NOTE | 2024-06-22 13:30 | DI.US_ITS ---
APPROVED REPORT EXAM: Comprehensive 2D, Doppler, and color-flow Echocardiogram Patient Location: In-Patient Room/Bed: 225 Database Administration Associate: Juanjose Valdes RDCS (AE) Indications: V-tach Other Information Study Quality: Adequate. Technically limited study due to body habitus. Conclusion Normal left ventricular wall thickness and chamber size. Ejection fraction is 55 to 60%. Wall motio n is normal Normal right ventricular size and function Both atria are normal in size There is no structural or hemodynamically significant valvular disease Estimated right ventricular systolic pressure is 31 mmHg Wall motion Left Ventricle The left ventricle is normal size. Left ventricular systolic function is normal. The left ventricular ejection fraction is within the normal range. There is normal left ventricular wall thickness. There is normal LV segmental wall motion. There is no ventricular septal defect visualized. LVEF is 55-60% . Right Ventricle The right ventricle is normal size. The right ventricular systolic function is normal. Atria The left atrium size is normal. The right atrium size is normal. The interatrial septum is intact wit h no evidence for an atrial septal defect. Aortic Valve The aortic valve is normal in structure. Aortic valve is trileaflet. There is no aortic valvular sten osis. No aortic regurgitation is present. Mitral Valve The mitral valve is normal in structure. No evidence of mitral valve stenosis. Trace mitral regurgita tion. Tricuspid Valve The tricuspid valve is normal in structure. There is no tricuspid valve stenosis. Mild tricuspid regu rgitation. The RVSP is 30.7 mmHg. Pulmonic Valve The pulmonary valve is normal in structure. There is no pulmonic valvular stenosis. Mild pulmonic reg urgitation. Great Vessels The aortic root is normal in size. The ascending aorta is normal in size. Aortic arch is normal in ca liber. IVC is normal in size and collapses >50% with inspiration. Pericardium There is no pericardial effusion. 2D Dimensions IVSD d PLAX 1.19 cm M: 0.6-1.2 Ao Root d 2.96 cm M: 3.1 - 3.7 LVPW d PLAX 1.22 cm M: 0.6 - 1.2 Ao Asc Diam d 2.96 cm M: 2.6 - 3.4 LVID d PLAX 4.82 cm M: 4.2 - 5.8 LVDs 3.49 cm M: 2.5 - 4.0 LV EF Teichholz 53.5 % FS 27.60 % LV EDV (Teich) 108.6 mL LV ESV (Teich) 50.6 mL Stroke Vol Index (Teich) 26.05 M-Mode TAPSE 2.52 cm (M/F) >1.7 Auto EF LV EDV A4C 114.6 mL LV EDV A2C 107.0 mL LV EDV BP 111.3 mL LV ESV A4C 52.1 mL LV ESV A2C 45.5 mL LV ESV BP 49.0 mL LVEF(%) A4C 54.5 % LVEF(%) A2C 57.4 % LVEF(%) BP 55.9 % LV SV A4C 62.5 ml LV SV A2C 61.4 ml LV SV BP 62.2 ml LV CO A4C 4.3 L/min LV CO A2C 4.2 L/min LV CO BP 4.3 L/min HR A4C 68.44 BPM HR A2C 69.07 BPM LV EDV Index (BP) LA Volume LA Length A4C 4.1 cm LA Length A2C 4.6 cm LA Area A4C s 10.77 cm2 LA Area A2C s 12.24 cm2 LA Vol A4C A-L 24.24 mL LA Vol A2C A-L 27.73 mL LA Vol Biplane A-L 27.5 mL LA Vol/BSA A4C A-L LA Vol/BSA A2C A-L LA Vol/BSA BP A-L 12.4 mL/m2 LA Vol A4C MOD 21.4 mL LA Vol A2C MOD 26.4 mL LA Vol BP MOD 25.2 mL RA Volume RA Area A4C 9.7 cm2 RA ESV A4C (A-L) 21.6mL RA Vol/BSA A4C A-L RA Length A4C 3.7 cm RA ESV A4C (MOD) 20.2mL LV Diastology MV E' medial 0.123 (>0.07 m/s) MV E Vmax 0.86 (0.4-1.3 m/s) MV E/E' MED 7.02 (<14) MV A Vmax 0.80 (0.4-1.3 m/s) MV E' lateral 0.121 (>0.1 m/s) E/A Ratio 1.1 MV E/E' LAT 7.12 (<14) MV E' Average 0.122 m/s MV E/E'(average) 7.07 Aortic Valve AoV Vmax 1.09 m/s LVOT Vmax 1.17 m/s AoV Peak Grad 4.8 mmHg LVOT Peak Grad 5.5 mmHg AoV Area (Vmax) 3.52 cm2 LVOT VTI 0.217 m AoV VTI 0.192 m LVOT Mean Grad 2.6 mmHg AoV Mean Ric. 0.82 m/s LVOT SV 71.06 mL AoV Mean Grad 2.9 mmHg LVOT Diam s 2.00 cm AoV Area (VTI) 3.70 cm2 AV Regurg Peak Gr. 4.75 mmHg Velocity Ratio 1.07 Mitral Valve MV DT 154 (160-240 msec) Pulmonary Valve PV Vmax 0.93 (0.5-1.5 m/s) RVOT Vmax 0.87 m/s PV Peak Grad 3.5 mmHg RVOT Peak Gr. 3.0 mmHg PV Mean Ric 0.68 m/s RVOT VTI 0.168 m PV Mean Grad 2.1 mmHg RVOT Mean Gr. 1.7 mmHg Tricuspid Valve RA Pressure 3.00 mmHg TR Vmax 2.63 m/s TV S' 0.15 m/s TR Peak Grad 27.6 mmHg RVSP (TR) 30.7 mmHg
--- NOTE | 2024-06-22 14:51 | W.PM.DS.N ---
Date of service: 06/22/24 Time of Service: 14:51 DS: Diagnosis Discharge Diagnosis (1) Cardiac arrhythmia: Status: Acute Discharge Plan Disposition [facility] Dis[facility] Condition: Improving Discharge Details Reason For Visit: sepsis, cellulitis Admit Date/Time: 06/15/24 23:25 Admit Provider: Edgard Bearden Attending Provider: Edgard Bearden Primary Care Provider: Unknown,Unknown Hospital Course Hospital Course: This 31 years old male patient living at the correctional facility and with with past medical history of hepatitis C, GERD, substance abuse on Suboxone presented to the ED on 06/15/2024 for evaluation of right lower extremity cellulitis and severe sepsis; was febrile at 104.3 [employer]. Right lan redness noticed 3 to 4 days prior to presentation; previous episode of right upper extremity colitis about a year ago treated with oral antibiotics, no history of MRSA, HIV. Imaging in the ED was negative for DVT or abscess. Minimal lung markings on x-ray without infiltrates or opacity. Labs were positive for cytosis, creatinine at 1.6 pointing to ISIS. The patient was admitted to the surgical medical floor for severe sepsis, cellulitis of the right lower extremity, ISIS. The patient continued to receive IV antibiotics and initial blood cultures were negative. Second set of blood cultures in the setting of persistent fevers were also negative. Antibiotics were narrowed down and the patient will be discharged on cefpodoxime. Surgical consult completed without recommendations for immediate intervention and recommendations for compression,leg elevation and dressing change as noted below as well as follow-up with surgery for evaluation of wound debridement; follow-up scheduled. The patient had 1 episode of asymptomatic ventricular tachycardia versus SVT with aberrancy and was started on metoprolol on which he will be discharged. Cardiology consult completed without any further recommendations. Echocardiogram was normal and showed and LVEF of 55-60%, RVSP of 31 mmHg. The patient is hemodynamically stable afebrile for over 24 hours. PT consult completed without any recommendations as patient able to ambulate independently Dressing change twice a day:Applied versatel wound contact layer, ABDs and, dry, CELIA wrap x 2 for compression dressing. This should be changed 1-2x/day as needed for drainage. Keep wound covered to avoid contamination. Activity level: Ambulate ad-chris with RLE elevation at rest. The patient no longer meets requirement for inpatient care and will be discharged to the correctional facility. The patient will need to see the provider at the [facility] outpatient surgical clinic appointment for Wednesday F/u on Hepatitis C status To be seen by outpatient provider w/i 7 days of return Discussed with Dr. Chandler Home Meds and New Rx's Prescriptions: New docusate sodium [Colace] 100 mg Capsule 100 mg PO BID Qty: 30 0RF metoprolol succinate 25 mg tablet extended release 24 hr 25 mg PO DAILY Qty: 30 0RF cefpodoxime 200 mg Tablet 400 mg PO Q12H Qty: 28 0RF Bio-K plus 50 billion cell capsule,delayed release(DR/EC) 1 cap PO DAILY Qty: 7 0RF Continued famotidine 20 mg tablet 20 mg PO BID hydroxyzine HCl 25 mg tablet 25 mg PO TID PRN ibuprofen [Advil] 200 mg tablet 600 mg PO BID PRN buprenorphine-naloxone [Suboxone] 8-2 mg film 2 film sublingual DAILY buprenorphine-naloxone [Suboxone] 2-0.5 mg film 2 film sublingual DAILY triamcinolone acetonide 0.5 % cream 1 applic topical BID PRN melatonin 3 mg capsule 6 mg PO QHS PRN Discontinued Colace Clear 50 mg capsule 50 mg PO TID PRN Discharge Instructions Referrals: [facility] [OTHER] - (F/u on Wednesday please - was seen inpatient for RLE cellulitis, CVI ? need for debridement later in treatment ) Unknown,Unknown [Primary Care Provider] - (Outpatient provider f/u within 7 days of discharge please) Activity:: Activity as Tolerated Equipment/Supplies:: No Equipment Needed Diet:: As Tolerated DS: Summary Time Spent with Patient providing and/or coordinating discharge services: Greater than 30 minutes Status at Discharge Functional status at discharge: independent ambulation Overall status at discharge: patient is progressing back to baseline Mental Status: mental status grossly normal Speech and Movement: speech and movement normal Mood: congruent mood Affect: normal affect and blunted Quality:SDOH Health Related Social Needs: No Data to Display Exam Narrative Exam Narrative: Constitutional No acute distress and has obese body habitus Neuro:alert and oriented X4 Resp:Clear lung bilaterally Cardio: regular rhythm, S1, S2, positive radial right dorsalis pedis pulse GI: Abdomen is not distended, non- tender , bowel sounds are present Integumentary: Ongoing erythema and blisters to RLE - improving redness/ swelling at groin level and upper leg , serous fluid drainage,ROM intact Extremities: strength 5/5 to bilateral lower and upper extremities Psych: RASS 0, congruent mood and normal-flat affect. Skin Other: As per Sx consult on 06/20/24 Outlined portion along the lan measures 12 cm long x 6 cm (superiorly); 4 cm (inferiorly) Psych Mental Status: mental status grossly normal Speech and Movement: speech and movement normal Mood: congruent mood Affect: normal affect and blunted DS: Data Vitals/I&O Vitals and I&O: Vital Signs Temperature 36.1 C L 06/22/24 11:21 Temperature Source Temporal Artery Scan 06/22/24 11:21 Pulse 74 06/22/24 11:21 Pulse Rhythm Regular 06/16/24 00:34 Respiratory Rate 16 06/22/24 11:21 Respiratory Effort Normal, Non-Labored 06/16/24 00:34 Respiratory Depth Normal 06/16/24 00:34 Respiratory Pattern Normal 06/16/24 00:34 Blood Pressure 116/81 06/22/24 11:21 Blood Pressure Mean 92 06/22/24 11:21 Blood Pressure Position Sitting 06/15/24 22:13 Pulse Oximetry 98 06/22/24 11:21 Oxygen Delivery Method Room Air 06/22/24 11:21 Oxygen Flow Rate 0 06/22/24 11:21 Pain Level 0 06/22/24 11:21 Comment pt states he feels fine, nurse notified 06/20/24 03:38 Intake & Output 06/21/24 06/22/24 06/22/24 23:59 11:59 23:59 Intake Total 210 / 450 Balance 210 / 450 Weight 138.799 kg Intake: IV 50 / 50 Oral 160 / 400 Other: Urine Color Yellow Yellow Urine Appearance Clear Clear Urine Odor Normal Normal Comment Patient voids ind. in the toilet. Patient voids ind. in the toilet. Data Completed and Pending Labs on day of discharge: Labs from last 24 hours 06/22/24 06:02: WBC 7.03, RBC 4.23 L, Hgb 13.5, Hct 38.3 L, MCV 91, MCH 31.9, MCHC 35.2, RDW 13.4, Plt Count 195, MPV 10.2, Immature Gran % 1.3, Neutrophils % 56.0, Lymphocytes % 30.6, Monocytes % 9.4, Eosinophils % 2.1, Basophils % 0.6, Nucleated RBC % 0.0, Absolute Neutrophils 3.94, Absolute Lymphocytes 2.15, Absolute Monocytes 0.66, Absolute Eosinophils 0.15, Absolute Basophils 0.04, Sodium 139, Potassium 3.8, Chloride 102, Carbon Dioxide 30.3, Anion Gap 6.7, BUN 11, Creatinine 0.7, Est GFR (CKD-EPI 2020) 120.95, Glucose 108 H, Calcium 8.7, Total Bilirubin 0.6, AST 51 H, ALT 50, Alkaline Phosphatase 61, Total Protein 7.9, Albumin 2.8 L Preliminary micro results at discharge 06/20/24 19:50 Blood Blood Culture - Preliminary NO GROWTH 24 HOURS 06/20/24 19:50 Blood Blood Culture - Preliminary NO GROWTH 24 HOURS PFSH All Active Problems (Updated 06/22/24 @ 15:48 by Rosaura Chung APRN) Cardiac arrhythmia (Acute) On deep vein thrombosis (DVT) prophylaxis (Acute) Ulcer of extremity due to chronic venous insufficiency (Acute) Chronic venous insufficiency of lower extremity (Acute) Constipation (Acute) ISIS (acute kidney injury) (Acute) Morbid obesity (Acute) GERD (gastroesophageal reflux disease) (Chronic) Anxiety disorder (Chronic) Chronic hepatitis C (Chronic) Opioid use disorder (Chronic) Cellulitis of right lower extremity (Acute) Sepsis (Acute) Social History Smoking risk assessment performed?: No Alcohol Intake: former Drug use: Current Sobriety Substance use type: former substance user and IV drugs Housing: other Do you feel safe at home: Yes Do you feel safe in your relationship?: Yes Additional Social history: inmate Time Spent with Patient Time Spent with Patient: 70-84 minutes4 Time was spent: preparing to see the patient(eg.review tests), obtaining and/or reviewing separately otained hiistory, ordering medications,tests, procedures, referring, communicating with other health pharmacy customer care specialist, indepentently interpreting results, counseling the patient and care coordination
[2024-06-22 15:23] VITALS: BP 127/86; PULSE 89; RESP 17; TEMP 35.5; O2SAT 97
[2024-06-22 15:44] VITALS: BP 135/85; PULSE 85
[2024-06-22] MEDS: Metoprolol CR 25 MG TABCR PO (15:45)
--- NOTE | 2024-06-22 16:07 | PDOC.CMDIS ---
Date of service: 06/22/24 Time of Service: 16:07 LACE Index Scoring Tool Questions: Length of Stay (in days): 7 - 13 Was the patient admitted via the E.D.?: Yes Comorbidities: Liver or Renal Disease E.D. Visits: 1 Answers: Total Score: 14 Risk of Readmission: High Risk Care Management Discharge Plan Reason for Hospitalization: cellulitis/sepsis Discharge Plan: Ramses will be discharged back to the correctional facility this afternoon. He will f/u with the facility provider and with general surgery on 06/26 at 11:45. He will transport via correctional facility vehicle and continue per his prescribed plan of care. Patient/Family Education Needs: Review of discharge instructions, activity, limitations, and discuss, Ask me 3. SDOH Health Related Social Needs: No Data to Display
[2024-06-25 14:50] LABS: 1,25-Dihydroxyvitamin D 62 pg/mL (18-64)
== END 2024-06-22 16:45 | DRG 872 ==
LOC: ER 23:34 → MS 06-16 00:23
PROVIDERS: Nurse Practitioner Acute Care; Admitting Provider Family Medicine; Emergency Provider Student in an Organized Health Care Education/Training Program; Responsible Provider Nurse Practitioner Acute Care; Visit Provider Family Medicine
DX: A41.9 Sepsis, unspecified organism (principal); L03.115 Cellulitis of right lower limb; N17.9 Acute kidney failure, unspecified; Z68.41 Body mass index [BMI] 40.0-44.9, adult; L97.818 Non-pressure chronic ulcer of other part of right lower leg with other specified severity; I47.19 Other supraventricular tachycardia; I47.20 Ventricular tachycardia, unspecified; B18.2 Chronic viral hepatitis C; F41.8 Other specified anxiety disorders; R65.20 Severe sepsis without septic shock; K21.9 Gastro-esophageal reflux disease without esophagitis; E66.01 Morbid (severe) obesity due to excess calories; K59.00 Constipation, unspecified; F11.90 Opioid use, unspecified, uncomplicated; Z79.899 Other long term (current) drug therapy; I83.018 Varicose veins of right lower extremity with ulcer other part of lower leg
CPT/HCPCS: 00123; 36415; 36416; 75635; 80048; 80053; 80061; 80307; 82550; 82962; 84145; 85027; 87040; 87637; 93005; 96365; 96366; 96367; 96368; 97161; 99291; J1650; 71045; 73590; 80202; 81003; 81015; 82652; 83036; 83605; 83735; 84484; 85025; 85610; 86140; 87070; 93010; 93306; 93971; 99223; 99233; 99239; J0131; J0456; J0692; J0696; J2543; J3370; J3372; J3475; J3490; Q9967

== ENCOUNTER 2024-11-13 13:26 | Inpatient (IN) | payer MEDICAID, SELFPAY ==
[2024-11-13 13:43] VITALS: BP 114/83; PULSE 77; RESP 20; TEMP 37; O2SAT 95
[2024-11-13 13:58] VITALS: BP 114/83; PULSE 77; RESP 20; TEMP 37; O2SAT 95
--- NOTE | 2024-11-13 14:02 | W.ED.GENAD ---
Discharge Plan Disposition Patient Disposition: Admit to [facility] Condition: Stable Discharge Details Clinical Impression: Cellulitis of right lower extremity Primary Care Provider: Unknown,Unknown ED Provider: Fauzia Negrete Home Meds and New Rx's Prescriptions: No Action famotidine 20 mg tablet 20 mg PO BID hydroxyzine HCl 25 mg tablet 25 mg PO TID PRN ibuprofen [Advil] 200 mg tablet 600 mg PO BID PRN buprenorphine-naloxone [Suboxone] 8-2 mg film 2 film sublingual DAILY buprenorphine-naloxone [Suboxone] 2-0.5 mg film 2 film sublingual DAILY triamcinolone acetonide 0.5 % cream 1 applic topical BID PRN melatonin 3 mg capsule 6 mg PO QHS PRN docusate sodium [Colace] 100 mg Capsule 100 mg PO BID Qty: 30 0RF metoprolol succinate 25 mg tablet extended release 24 hr 25 mg PO DAILY Qty: 30 0RF cefpodoxime 200 mg Tablet 400 mg PO Q12H Qty: 28 0RF Bio-K plus 50 billion cell capsule,delayed release(DR/EC) 1 cap PO DAILY Qty: 7 0RF HPI General Mode of arrival: ambulatory. Date/Time Provider Initiated Documentation: 11/13/24 13:44. Limitations to Documentation: no limitations. Information obtained by: patient and old records reviewed. HPI Narrative: This is a 39-year-old male patient with past medical history significant for chronic venous insufficiency, and admission in June of this year for right lower extremity cellulitis, presenting for evaluation of worsening swelling and redness of the right lower extremity. He reports that after his discharge he was healthy for approximately 2 months. He is currently incarcerated, states that several days ago he noted worsening of his right lower extremity swelling and redness, and a new area of induration and swelling in the medial thigh. He states that his chronic lower extremity changes are actually improving, he was restarted on Bactrim and cephalexin 3 days ago and has not noted improvement. He reports no new numbness, tingling, or weakness of the right lower extremity, has not had fever or chills, and denies other recent changes in his health. Denies involvement of the scrotum or perennial tissues. Related Data Home Medications ?Medication ?Instructions ?Recorded ?Confirmed buprenorphine 2 mg-naloxone 0.5 mg 2 film sublingual DAILY 06/15/24 06/15/24 sublingual film (Suboxone) buprenorphine 8 mg-naloxone 2 mg 2 film sublingual DAILY 06/15/24 06/15/24 sublingual film (Suboxone) famotidine 20 mg tablet 20 mg PO BID 06/15/24 06/15/24 hydroxyzine HCl 25 mg tablet 25 mg PO TID PRN 06/15/24 06/16/24 ibuprofen 200 mg tablet (Advil) 600 mg PO BID PRN 06/15/24 06/16/24 melatonin 3 mg capsule 6 mg PO QHS PRN 06/15/24 06/16/24 triamcinolone acetonide 0.5 % 1 applic topical BID PRN 06/15/24 06/16/24 topical cream L. acidophilus,casei,rhamnosus 50 1 cap PO DAILY #7 caps 06/22/24 billion cell capsule,delayed release (Bio-K plus) cefpodoxime 200 mg tablet 400 mg (2 x 200 mg) PO Q12H #28 06/22/24 tabs docusate sodium 100 mg capsule 100 mg PO BID #30 caps 06/22/24 (Colace) metoprolol succinate 25 mg 25 mg PO DAILY #30 tabs 06/22/24 tablet,extended release 24 hr Previous Rx's ?Medication ?Instructions ?Recorded L. acidophilus,casei,rhamnosus 50 1 cap PO DAILY #7 caps 06/22/24 billion cell capsule,delayed release (Bio-K plus) cefpodoxime 200 mg tablet 400 mg (2 x 200 mg) PO Q12H #28 06/22/24 tabs docusate sodium 100 mg capsule 100 mg PO BID #30 caps 06/22/24 (Colace) metoprolol succinate 25 mg 25 mg PO DAILY #30 tabs 06/22/24 tablet,extended release 24 hr Allergies Allergy/AdvReac Type Severity Reaction Status Date / Time No Known Allergies Allergy Unverified 06/15/24 22:09 General Stated Complaint: Cellulitis MAUREEN: 3 Exam Narrative Exam Narrative: Gen: Awake and alert, in no apparent distress HEENT: Non-icteric sclera Neck: Supple Lungs: No apparent respiratory distress, normal respiratory effort. Lung sounds clear and equal bilaterally without wheezes, rhonchi, rales CV: Appears well perfused, heart with regular rate and rhythm, strong distal pulses, no murmurs Abdomen: Non-distended MSK: Moves 4 extremities without apparent limitation in ROM. The patient has 2+ swelling of the right lower extremity with induration, warmth, and reddish discoloration of the skin of the calf. He also has new poorly demarcated redness, induration, and warmth of the medial thigh, without palpable fluctuance. No crepitus, DP pulses strong distal to these infectious findings Skin: Visualized skin without rashes, cyanosis. Neuro: Normal Gait, no obvious focal deficits or facial asymmetry. Speaks in full, clear sentences. Psych: Appropriate for situation. Course Vital Signs Vital signs: Vital Signs Temperature 37.0 C 11/13/24 13:43 Pulse 77 11/13/24 13:43 Respiratory Rate 20 11/13/24 13:43 Blood Pressure 114/83 11/13/24 13:43 Pulse Oximetry 95 11/13/24 13:43 Temperature 37.0 C 11/13/24 13:58 Temperature Source Oral 11/13/24 13:58 Pulse 77 11/13/24 13:58 Respiratory Rate 20 11/13/24 13:58 Blood Pressure 114/83 11/13/24 13:58 Blood Pressure Position Sitting 11/13/24 13:58 Pulse Oximetry 95 11/13/24 13:58 Oxygen Delivery Method Room Air 11/13/24 13:58 Oxygen Flow Rate 0 11/13/24 13:58 Pain Level 0 11/13/24 13:58 Lab/Test Results Lab/Test Results: 11/13/24 14:01 Blood Blood Culture - Pending 11/13/24 14:01 Blood Blood Culture - Pending Medical Decision Making This is a 39-year-old male patient presenting for evaluation of acute on chronic worsening of his right lower extremity redness, swelling, induration, and warmth. Differential includes but is not limited to cellulitis, abscess, certainly considered other deep space infections including necrotizing fasciitis, Rosey's, myositis, though the patient is reassuringly hemodynamically appropriate and well-appearing at this time. The patient has no evidence for arterial occlusion and given the normal pulses, has had no history of DVTs in the past, and his exam is much more concerning for an infectious pathology. Considered sepsis and bacteremia given the prolonged duration of his illness. We will obtain blood cultures, labs to include CBC, CMP, magnesium, and inflammatory markers. Will obtain a CT of the lower extremity with contrast to better characterize any abnormalities which would require surgical intervention. - I reviewed the patient's laboratory studies, which show no leukocytosis, anemia or thrombocytopenia. Chemistry panel without electrolyte derangements or kidney injury, does have a mild transaminitis. CRP slightly elevated to 4.7, ESR to 26. After blood cultures were obtained I provided the patient with ceftriaxone and vancomycin. CT reveals cellulitic changes of the medial thigh and circumferential calf, no abscess or evidence of necrotizing skin or soft tissue infection, foreign bodies, or osteomyelitis. I reached out to the hospitalist who is graciously accepted this patient for admission to their service for ongoing management of his cellulitis which has failed outpatient oral antibiotics. The patient remained hemodynamically appropriate while under my care, and was transferred to their service without incident. Fauzia Negrete MD [facility] All Active Problems (Updated 11/13/24 @ 17:10 by Fauzia Negrete MD) Ulcer of extremity due to chronic venous insufficiency (Acute) Chronic venous insufficiency of lower extremity (Acute) Morbid obesity (Acute) GERD (gastroesophageal reflux disease) (Chronic) Chronic hepatitis C (Chronic) Opioid use disorder (Chronic) Cellulitis of right lower extremity (Acute) Medical History (Updated 11/13/24 @ 17:10 by Fauzia Negrete MD) Cardiac arrhythmia Constipation Anxiety disorder Social History Smoking/Tobacco Use Status: Never Smoking risk assessment performed?: Yes Alcohol Intake: former Drug use: Current Sobriety Substance use type: former substance user and IV drugs Housing: other Do you feel safe at home: Yes Do you feel safe in your relationship?: Yes Additional Social history: inmate
[2024-11-13 15:02] LABS: Abs Immature Grans 0.01 10^3/uL (0.0-0.06); HCT 40.9 % (40.0-50.0); HGB 13.9 g/dL (13.5-17.5); Immature Grans % 0.2 %; MCH 30.5 pg (27.0-33.0); MCHC 34.0 % (32.0-36.0); MCV 90 fL (80-95); MPV 9.7 fL (8.0-11.0); Platelet Count 147 10^3/uL (130-400); RBC 4.56 10^6/uL (4.36-5.78); RDW 13.3 % (11.8-14.1); RDW-SD 43.8 fL; WBC 5.23 10^3/uL (4.4-10.8)
[2024-11-13 15:26] LABS: ALT 94 U/L (16-63); AST 57 U/L (15-37); Albumin 3.8 g/dL (3.4-5.0); Alkaline Phosphatase 86 U/L (46-116); Anion Gap 5.6 mmol/L (3-11); BUN 9 mg/dL (7-18); Bilirubin, Total 0.7 mg/dL (0.2-1.0); C-Reactive Protein 4.76 mg/dL (<or=0.5); CO2 31.4 mmol/L (21.0-32.0); Calcium 8.9 mg/dL (8.5-10.1); Chloride 100 mmol/L (98-107); Estimated GFR 112.11 (mL/min/1.73m2); Glucose 98 mg/dL (74-106); Magnesium 2.0 mg/dL (1.8-2.4); Potassium 4.3 mmol/L (3.5-5.1); Sodium 137 mmol/L (136-145); Total Protein 8.9 g/dL (6.4-8.2)
[2024-11-13] MEDS: Omnipaque 350 MG/ML 100 ML BTL IJ (15:50)
[2024-11-13] MEDS: Normal Saline Flush 10 ML SYR IVP ×2 (15:50→20:29)
[2024-11-13] MEDS: Normal Saline - Diluent 50 ML VIAL IJ (15:50)
[2024-11-13 15:57] LABS: ESR 26 mm/hr (0-15)
--- NOTE | 2024-11-13 16:00 | DI.CT_ITS ---
Exam(s) CT LOWER EXTREMITY RT W EXAM: CT LOWER EXTREMITY RT W CLINICAL HISTORY: medial thigh cellulitis vs abscess. TECHNIQUE: Imaging Protocol: Axial computed tomography images with coronal and sagittal reformatted images were created and reviewed. CONTRAST MATERIAL: Intravenous: Omnipaque 350 Contrast volume:100 mL contrast route:IV - COMPARISON: CT CT ABD AORTA CTA W RUNOFF from 06/19/2024 FINDINGS: SOFT TISSUES: There is subcutaneous streaking and skin thickening in the medial aspect of the upper-mid right thigh consistent with probable cellulitis. There is no evidence of distinct abscess. Prominent lymph nodes in the right groin are seen, similar to abdominal CT scan of June 2024. The amount of cellulitis on the anterior aspect of the thigh is actually less than was evident on the scan of 06/19/2024. However, there is now cellulitis evident in the medial thigh as described above. There is no soft tissue air. No radiopaque foreign bodies evident. Lower down there is a circumferential cellulitis pattern involving most of the ipsilateral calf, also without a distinct abscess. No evidence of osteomyelitis in the bones of the lower extremity. No fractures nor incidental osseous lesions. No evidence of knee joint effusion. IMPRESSION: Cellulitis pattern in the medial thigh. No abscess at this level. Circumferential cellulitis pattern involving most of the ipsilateral calf. No abscess evident Enlarged right groin lymph nodes noted which are probably reactive. These were also evident on prior CT scan of 06/19/2024 Report called by myself to ER physician 11/13/2024 at 4:57 p.m. RADIATION DOSE DELIVERED: 1,391.49mGy.cm Total DLP DATA REPOSITORY: All CT scans at this facility are submitted to the National Radiology Data Registry (NRDR) Dose Index Registry (DIR) with the [employer] (ACR). RADIATION OPTIMIZATION: All CT scans at this facility use at least one of these dose optimization techniques: automated exposure control; mA and/or kV adjustment per patient size (includes targeted exams where dose is matched to clinical indication); or iterative reconstruction.
[2024-11-13] MEDS: cefTRIAXone 1 GM/50 ML BAG IVPB (16:32)
[2024-11-13] MEDS: VANCOMYCIN/WATER (PEG) 2 GM/400 ML BAG IVPB (16:32)
[2024-11-13 16:34] VITALS: BP 123/70; PULSE 78; RESP 18; O2SAT 98
--- NOTE | 2024-11-13 17:07 | W.PM.HP.N ---
Date of service: 11/13/24 Time of Service: 17:07 Assessment and Plan Assessment and plan (1) Cellulitis of right lower extremity: Status: Acute Assessment and plan: - Patient has a history of recurrent cellulitis - Chronic venous insufficiency likely contributing as well as patient being incarcerated - Patient does not have signs of sepsis as he is not tachycardic, tachypneic, with no leukocytosis or leukopenia, and is afebrile - Was started on Bactrim and Keflex 3 days ago without improvement - Was given ceftriaxone and vancomycin in the emergency department, will continue - CT of the lower extremity in the ED did not show any signs of abscess -f/u blood cultures (2) Opioid use disorder: Status: Chronic Assessment and plan: - Will continue home Suboxone dose once confirmed by pharmacy (3) GERD (gastroesophageal reflux disease): Status: Chronic Assessment and plan: - Continue famotidine (4) Chronic venous insufficiency of lower extremity: Status: Acute Assessment and plan: - Apparently has been improving as per patient History of Present Illness History of Present Illness Chief Complaint: RLE cellulitis Narrative: Incarcerated 39-year-old male with a past medical history of recurrent right lower extremity cellulitis, chronic venous insufficiency, and opiate use disorder on Suboxone who presents to the emergency department with worsening right lower extremity cellulitis. Patient was hospitalized here about 2 months ago for right lower extremity cellulitis and states that he has been healthy since that time. He has not had recurrent cellulitis and his chronic venous insufficiency has also significantly improved. However, 3 days ago he noticed worsening redness and pain of his right lower extremity. He was started on Bactrim and Keflex and did not note any improvement prompting him to present to the emergency department. He denies any fevers, lightheadedness, dizziness, chills, chest pain, purulence from his right lower extremity. In the emergency department the patient was noted as having normal vital signs, normal CBC, normal CMP, but physical exam was concerning for worsening right lower extremity cellulitis and possible abscess. CT was performed did not show any signs of abscess only cellulitis. Patient was started on ceftriaxone and vancomycin emergency provider paged hospitalist for admission for patient with recurrent cellulitis failing outpatient therapy. Review of Systems All systems reviewed & are unremarkable except as noted in HPI and below PFSH All Active Problems (Updated 11/13/24 @ 17:10 by Fauzia Negrete MD) Ulcer of extremity due to chronic venous insufficiency (Acute) Chronic venous insufficiency of lower extremity (Acute) Morbid obesity (Acute) GERD (gastroesophageal reflux disease) (Chronic) Chronic hepatitis C (Chronic) Opioid use disorder (Chronic) Cellulitis of right lower extremity (Acute) Medical History (Updated 11/13/24 @ 17:10 by Fauzia Negrete MD) Cardiac arrhythmia Constipation Anxiety disorder Social History Smoking/Tobacco Use Status: Never Smoking risk assessment performed?: Yes Alcohol Intake: former Drug use: Current Sobriety Substance use type: former substance user and IV drugs Housing: other Do you feel safe at home: Yes Do you feel safe in your relationship?: Yes Additional Social history: inmate Meds Allergies and Home Medications Allergies Allergy/AdvReac Type Severity Reaction Status Date / Time No Known Allergies Allergy Unverified 06/15/24 22:09 Home Medications ?Medication ?Instructions ?Recorded ?Confirmed ?Type buprenorphine 2 mg-naloxone 0.5 mg 2 film sublingual DAILY 06/15/24 06/15/24 History sublingual film (Suboxone) buprenorphine 8 mg-naloxone 2 mg 2 film sublingual DAILY 06/15/24 06/15/24 History sublingual film (Suboxone) famotidine 20 mg tablet 20 mg PO BID 06/15/24 06/15/24 History hydroxyzine HCl 25 mg tablet 25 mg PO TID PRN 06/15/24 06/16/24 History ibuprofen 200 mg tablet (Advil) 600 mg PO BID PRN 06/15/24 06/16/24 History melatonin 3 mg capsule 6 mg PO QHS PRN 06/15/24 06/16/24 History triamcinolone acetonide 0.5 % 1 applic topical BID PRN 06/15/24 06/16/24 History topical cream L. acidophilus,casei,rhamnosus 50 1 cap PO DAILY #7 caps 06/22/24 Rx billion cell capsule,delayed release (Bio-K plus) cefpodoxime 200 mg tablet 400 mg (2 x 200 mg) PO Q12H #28 06/22/24 Rx tabs docusate sodium 100 mg capsule 100 mg PO BID #30 caps 06/22/24 Rx (Colace) metoprolol succinate 25 mg 25 mg PO DAILY #30 tabs 06/22/24 Rx tablet,extended release 24 hr Exam Narrative Exam Narrative: Well-appearing gentleman laying in bed in no acute distress, ANO x 4, heart regular rhythm, lungs auscultation bilaterally, abdomen soft, nontender, nondistended, significant warmth and redness of the right lower extremity with area clearly demarcated Results Labs 11/13/24 12:35 11/13/24 12:35 Labs: Laboratory Results - last 24 hr 11/13/24 12:35 WBC 5.23 RBC 4.56 Hgb 13.9 Hct 40.9 MCV 90 MCH 30.5 MCHC 34.0 RDW 13.3 Plt Count 147 MPV 9.7 Immature Gran % 0.2 Neutrophils % 46.7 Lymphocytes % 37.7 Monocytes % 11.7 Eosinophils % 3.1 Basophils % 0.6 Nucleated RBC % 0.0 Absolute Neutrophils 2.45 Absolute Lymphocytes 1.97 Absolute Monocytes 0.61 Absolute Eosinophils 0.16 Absolute Basophils 0.03 ESR 26 H Sodium 137 Potassium 4.3 Chloride 100 Carbon Dioxide 31.4 Anion Gap 5.6 BUN 9 Creatinine 0.9 Est GFR (CKD-EPI 2020) 112.11 Glucose 98 Calcium 8.9 Magnesium 2.0 Total Bilirubin 0.7 AST 57 H ALT 94 H Alkaline Phosphatase 86 C-Reactive Protein 4.76 H Total Protein 8.9 H Albumin 3.8 Last Vital Signs Temp 98.6 F 11/13/24 13:58 Pulse 78 11/13/24 16:34 Resp 18 11/13/24 16:34 BP 123/70 11/13/24 16:34 Pulse Ox 98 11/13/24 16:34 Time Spent Time spent with Patient: >75 minutes Time was spent: preparing to see the patient(eg.review tests), obtaining and/or reviewing separately otained hiistory, ordering medications,tests, procedures, referring, communicating with other health family member caretaker, indepentently interpreting results, counseling the patient and care coordination
--- NOTE | 2024-11-13 17:46 | W.PC.ACHO ---
Registration Status: REG ER Primary Language: Preferred Language: ED Information & Data Chief Complaint Cellulitis 11/13/24 14:02 Triage Note right lower leg cellulitis 11/13/24 13:43 since June- was hospitalized w/IV abx and has numerous rounds of oral antibiotics. CUrrently on Bactrim & Cephalexin Medical / Surgical History (Last Reviewed 06/22/24 @ 08:35 by Bea Carl MD) Cardiac arrhythmia Constipation Anxiety disorder Most Recent Vital Signs Temperature 37.0 C 11/13/24 13:58 Temperature Source Oral 11/13/24 13:58 Pulse 78 11/13/24 16:34 Respiratory Rate 18 11/13/24 16:34 Blood Pressure 123/70 11/13/24 16:34 Blood Pressure Mean 87 11/13/24 16:34 Blood Pressure Position Sitting 11/13/24 13:58 Pulse Oximetry 98 11/13/24 16:34 Oxygen Delivery Method Room Air 11/13/24 13:58 Oxygen Flow Rate 0 11/13/24 13:58 Pain Level 0 11/13/24 13:58 Allergies No Known Allergies Allergy (Unverified 06/15/24 22:09) Active Medications Generic Name Dose Route Start Last Admin Trade Name Freq PRN Reason Stop Dose Admin Iohexol 100 ml 11/13/24 16:00 11/13/24 15:50 Omnipaque 350 Mg/Ml 100 Ml Btl IJ 12/13/24 23:59 100 ml DIRECTED STAN Administration Sodium Chloride 0 ml 11/13/24 15:49 11/13/24 15:50 Normal Saline Flush 10 Ml Syr IVP 10 ml PRN PRN Administration Sodium Chloride 50 ml 11/13/24 16:00 11/13/24 15:50 Normal Saline - Diluent 50 Ml Vial IJ 50 ml DIRECTED STAN Administration IV IV Catheter Type [Left Saline Lock Antecubital] IV Catheter Gauge [Left 20 Antecubital] Diagnostics 11/13/24 Range/Units 12:35 WBC 5.23 (4.4-10.8) 10^3/uL RBC 4.56 (4.36-5.78) 10^6/uL Hgb 13.9 (13.5-17.5) g/dL Hct 40.9 (40.0-50.0) % MCV 90 (80-95) fL MCH 30.5 (27.0-33.0) pg MCHC 34.0 (32.0-36.0) % RDW 13.3 (11.8-14.1) % Plt Count 147 (130-400) 10^3/uL MPV 9.7 (8.0-11.0) fL Immature Gran % 0.2 % Neutrophils % 46.7 % Lymphocytes % 37.7 % Monocytes % 11.7 % Eosinophils % 3.1 % Basophils % 0.6 % Nucleated RBC % 0.0 (0.0-0.3) % Absolute Neutrophils 2.45 (1.2-6.7) 10^3/uL Absolute Lymphocytes 1.97 (1.2-3.4) 10^3/uL Absolute Monocytes 0.61 (0.1-0.8) 10^3/uL Absolute Eosinophils 0.16 (0.0-0.7) 10^3/uL Absolute Basophils 0.03 (0.0-0.2) 10^3/uL ESR 26 H (0-15) mm/hr Sodium 137 (136-145) mmol/L Potassium 4.3 (3.5-5.1) mmol/L Chloride 100 (98-107) mmol/L Carbon Dioxide 31.4 (21.0-32.0) mmol/L Anion Gap 5.6 (3-11) mmol/L BUN 9 (7-18) mg/dL Creatinine 0.9 (0.70-1.30) mg/dL Est GFR (CKD-EPI 2020) 112.11 (mL/min/1.73m2) Glucose 98 (74-106) mg/dL Calcium 8.9 (8.5-10.1) mg/dL Magnesium 2.0 (1.8-2.4) mg/dL Total Bilirubin 0.7 (0.2-1.0) mg/dL AST 57 H (15-37) U/L ALT 94 H (16-63) U/L Alkaline Phosphatase 86 (46-116) U/L C-Reactive Protein 4.76 H (<or=0.5) mg/dL Total Protein 8.9 H (6.4-8.2) g/dL Albumin 3.8 (3.4-5.0) g/dL 11/13/24 15:00 Blood Culture - Pending Blood 11/13/24 12:35 Blood Culture - Pending Blood Intake and Output - 24 Hour Total 11/13/24 13:26 thru 11/13/24 13:43 Weight 122.47 kg Falls Risk Assessment History of Falls No History 11/13/24 13:58 Contributing Factors No Factors 11/13/24 13:58 Ambulatory Aids Independent 11/13/24 13:58 Tubes/Lines None 11/13/24 13:58 Gait Evaluation No gait disturbance 11/13/24 13:58 Cognition No cognitive impairment 11/13/24 13:58 Fall Total Score 0 11/13/24 13:58 Level of Risk Standard/Low Risk 11/13/24 13:58 Problems (Last Reviewed 06/22/24 @ 08:35 by Bea Carl MD) Chronic venous insufficiency of lower extremity (Acute) GERD (gastroesophageal reflux disease) (Chronic) Opioid use disorder (Chronic) Cellulitis of right lower extremity (Acute) v v v v v v v v v Sending and/or Receiving Nurses: Please use comment section below to note any information pertinent to the patient hand-off not included above. Information / Comments: Initially called for report at 1737 adn was told they would call back, ED called back at 1740. 20 G L AC, currently running vancomycin. Inner right thigh is warm/swollen/tender. Report received from: Lonnie Riddle ED RN
[2024-11-13 17:56] VITALS: BP 152/105; PULSE 78; RESP 17; TEMP 36.9; O2SAT 93
[2024-11-13 19:00] VITALS: BP 116/70; PULSE 80; RESP 18; TEMP 37.5; O2SAT 98
[2024-11-13] MEDS: Famotidine 20 MG TAB PO (20:29)
[2024-11-13 22:22] VITALS: BP 113/75; PULSE 83; RESP 18; TEMP 37.1; O2SAT 95
[2024-11-14] VITALS (7 sets, daily range): BP systolic 91–125; BP diastolic 58–85; PULSE 66–86; RESP 16–18; TEMP 36–37.9; O2SAT 93–98
[2024-11-14] MEDS: VANCOMYCIN 1,500 MG in Normal Saline 250 ML 166.667 MG IVPB (03:56)
[2024-11-14] MEDS: Normal Saline Flush 10 ML SYR IVP ×4 (03:57→19:36)
[2024-11-14] MEDS: Water,Injection,Sterile 10 ML VIAL (04:15)
[2024-11-14 07:02] LABS: HCT 35.4 % (40.0-50.0); HGB 12.3 g/dL (13.5-17.5); MCH 31.0 pg (27.0-33.0); MCHC 34.7 % (32.0-36.0); MCV 89 fL (80-95); MPV 9.8 fL (8.0-11.0); Platelet Count 126 10^3/uL (130-400); RBC 3.97 10^6/uL (4.36-5.78); RDW 13.2 % (11.8-14.1); RDW-SD 43.1 fL; WBC 4.60 10^3/uL (4.4-10.8)
[2024-11-14 07:24] LABS: Anion Gap 10.3 mmol/L (3-11); BUN 11 mg/dL (7-18); CO2 25.7 mmol/L (21.0-32.0); Calcium 8.4 mg/dL (8.5-10.1); Chloride 103 mmol/L (98-107); Estimated GFR 98.80 (mL/min/1.73m2); Glucose 103 mg/dL (74-106); Magnesium 1.9 mg/dL (1.8-2.4); Potassium 4.2 mmol/L (3.5-5.1); Sodium 139 mmol/L (136-145)
[2024-11-14] MEDS: cefTRIAXone 1 GM/50 ML BAG IVPB (08:03)
[2024-11-14] MEDS: Metoprolol CR 25 MG TABCR PO (08:04)
[2024-11-14] MEDS: Famotidine 20 MG TAB PO ×2 (08:04→19:35)
--- NOTE | 2024-11-14 08:13 | W.PM.PROGNOT ---
Date of Service Date of service: 11/14/24 Time of Service: 08:13 Assessment and Plan Assessment and plan (1) Cellulitis of right lower extremity: Status: Acute Assessment and plan: - Patient has a history of recurrent cellulitis - Chronic venous insufficiency likely contributing as well as patient being incarcerated - Patient does not have signs of sepsis as he is not tachycardic, tachypneic, with no leukocytosis or leukopenia, and is afebrile - Was started on Bactrim and Keflex 3 days ago without improvement - Was given ceftriaxone and vancomycin in the emergency department, will continue - CT of the lower extremity in the ED did not show any signs of abscess -f/u blood cultures (2) Opioid use disorder: Status: Chronic Assessment and plan: - Will continue home Suboxone dose once confirmed by pharmacy (3) GERD (gastroesophageal reflux disease): Status: Chronic Assessment and plan: - Continue famotidine (4) Chronic venous insufficiency of lower extremity: Status: Acute Assessment and plan: - Apparently has been improving as per patient Subjective Subjective Interval history since last seen: Patient states that he is doing well this morning and has no complaints or concerns at this time. Exam Narrative Exam Narrative: Well-appearing gentleman laying in bed in no acute distress, ANO x 4, heart regular rhythm, lungs auscultation bilaterally, abdomen soft, nontender, nondistended, warmth and redness of the right lower extremity, improved in intensity and somewhat withdrawn from demarcated line Objective Last Vital Signs Temp 100.2 F H 11/14/24 07:24 Pulse 86 11/14/24 08:01 Resp 17 11/14/24 07:24 BP 112/62 11/14/24 08:01 Pulse Ox 93 11/14/24 08:01 Laboratory Results - last 24 hr 11/13/24 11/14/24 12:35 06:46 WBC 5.23 4.60 RBC 4.56 3.97 L Hgb 13.9 12.3 L Hct 40.9 35.4 L MCV 90 89 MCH 30.5 31.0 MCHC 34.0 34.7 RDW 13.3 13.2 Plt Count 147 126 L MPV 9.7 9.8 Immature Gran % 0.2 Neutrophils % 46.7 Lymphocytes % 37.7 Monocytes % 11.7 Eosinophils % 3.1 Basophils % 0.6 Nucleated RBC % 0.0 Absolute Neutrophils 2.45 Absolute Lymphocytes 1.97 Absolute Monocytes 0.61 Absolute Eosinophils 0.16 Absolute Basophils 0.03 ESR 26 H Sodium 137 139 Potassium 4.3 4.2 Chloride 100 103 Carbon Dioxide 31.4 25.7 Anion Gap 5.6 10.3 BUN 9 11 Creatinine 0.9 1.0 Est GFR (CKD-EPI 2020) 112.11 98.80 Glucose 98 103 Calcium 8.9 8.4 L Magnesium 2.0 1.9 Total Bilirubin 0.7 AST 57 H ALT 94 H Alkaline Phosphatase 86 C-Reactive Protein 4.76 H Total Protein 8.9 H Albumin 3.8 Time Spent with Patient Time Spent with Patient: >50 minutes Time was spent: preparing to see the patient(eg.review tests), obtaining and/or reviewing separately otained hiistory, ordering medications,tests, procedures, referring, communicating with other health child care development specialist, indepentently interpreting results, counseling the patient and care coordination
[2024-11-14] MEDS: Lactobacillus Acidophilus CAP 1 CAP PO (09:06)
--- NOTE | 2024-11-14 09:18 | PDOC.CMIN ---
Date of service: 11/14/24 Time of Service: 09:18 Care Management Initial Assmt Initial Assessment Reason for Hospitalization: cellulitis Functional Status/Living Situation Patient Presentation: Ramses presented to the ED yesterday afternoon with c/o recurrent right lower leg cellulitis. He does have chronic venous insufficiency. He had been hospitalized for cellulitis in June, and for this occurrence he had been on Bactrim and Keflex for 3 days prior to coming to the ER. Ramses was lying in bed, watching TV, when CM met with him today. He was polite, but not talkative and didn't offer much more than one word responses. Ramses is a resident at the [facility]. CM spoke with VARUN Bell at the facility and updated her that Ramses will at least need one more night. CM will continue to keep Arabella informed on the discharge. Town of Residence: [facility] the [facility] Significant Other/Family: Out of area (16yo son that he does keep in touch with) Employment Status: Unemployed Instrumental Activities of Daily Living (ADLs): Independent Medications Medication Management: No Issues/Barriers identified Advance Directives Advance Directives: Do you have an Advance Directive: N Today, 04:14 AD On File at [facility]: N 06/15/24, 22:53 Date Asked 11/13/24 11/13/24, 14:22 AD Date Reviewed COLST On File at [facility] COLST Date Scanned Code Status Resuscitation Status Full Code Insurance Coverage/Financial Issues Insurance: Medicaid [place] Care Team Visit Care Team Role Provider Type Unknown Unknown Primary Care Provider STAFF PHYSICIAN Fauzia Negrete MD Emergency Provider [facility] STAFF PHYSICIAN Tejinder Brewer MD Admit Provider [facility] STAFF PHYSICIAN Attending Provider Discharge Potential Discharge Needs: Other (facility provider follow up) Anticipated Barriers to Discharge: None Identified Patient/Family Education Needs: Review discharge instructions, discuss Ask Me Three Transportation: Facility Transport Plan: Ramses will discharge to the [facility] when medically cleared. Corrections staff will coordinate transportation. Ramses will follow up with facility providers and discharge plan of care which includes wound care instructions. CM will follow and continue to support discharge planning. Social Determinants of Health Screening Social Determinants of health last assessed in clinic: 11/14/24 Will the Patient Participate in the Screening?: Yes Do you worry about having a steady place to live?: no Problems where you live: no known problems In the past 12 months, have you had to go without electric, gas, oil or water in your home?: no 1. Within the past 12 months, we worried whether our food would run out before we got money to buy more.: Don't know/refused 2. Within the past 12 months, the food we bought just didn't last and we didn't have money to get more.: Don't know/refused Has lack of transportation kept you from medical appointments or from doing things needed for daily living?: no Has anyone in your life made you feel unsafe or unsupported?: no How hard is it for you to pay for the very basics like food, housing, medical care, and heating? Would you say it is:: Not hard at all Do you want help finding or keeping work or a job?: I do not need or want help If for any reason you need help with day-to-day activities such as bathing, preparing meals, shopping, managing finances, etc., do you get the help you need?: I don?t need any help How often do you feel lonely or isolated from those around you?: Never Do you speak a language other than [place] at home?: No Does the patient want assistance with any of the above?: No Comments: Pt is DOC. PFSH All Active Problems (Updated 11/13/24 @ 17:10 by Fauzia Negrete MD) Ulcer of extremity due to chronic venous insufficiency (Acute) Chronic venous insufficiency of lower extremity (Acute) Morbid obesity (Acute) GERD (gastroesophageal reflux disease) (Chronic) Chronic hepatitis C (Chronic) Opioid use disorder (Chronic) Cellulitis of right lower extremity (Acute) Medical History (Updated 11/13/24 @ 17:10 by Fauzia Negrete MD) Cardiac arrhythmia Constipation Anxiety disorder Social History Smoking/Tobacco Use Status: Never Smoking risk assessment performed?: Yes Alcohol Intake: former Drug use: Current Sobriety Substance use type: former substance user and IV drugs Housing: other Do you feel safe at home: Yes Do you feel safe in your relationship?: Yes Additional Social history: inmate
[2024-11-14 09:45] LABS: Vancomycin, Random 22.1 ug/mL
[2024-11-14] MEDS: Buprenorphine/Naloxone 8 mg/2 mg FILM 3 EACH SL (12:22)
--- NOTE | 2024-11-14 13:47 | CHAPLAIN ---
Saurabh was in bed when I visited. A unarmed security officer from [facility] was with him. I explained my role to Saurabh and offered support. He is here with recurrent cellulitis.
[2024-11-14 15:33] LABS: Vancomycin, Trough 13.6 ug/mL (10.0-20.0)
[2024-11-14] MEDS: VANCOMYCIN/WATER (PEG) 1.25 GM/250 ML BAG IV (16:16)
[2024-11-15] MEDS: VANCOMYCIN/WATER (PEG) 1.25 GM/250 ML BAG IV (04:13)
[2024-11-15] MEDS: Normal Saline Flush 10 ML SYR IVP (04:14)
[2024-11-15 04:16] VITALS: BP 139/95; PULSE 71; RESP 16; TEMP 36.1; O2SAT 97
[2024-11-15 07:44] VITALS: BP 132/78; PULSE 70; RESP 18; TEMP 36.7; O2SAT 95
[2024-11-15] MEDS: Cefpodoxime 200 MG TAB 400 MG PO (08:24)
[2024-11-15] MEDS: Metoprolol CR 25 MG TABCR PO (08:24)
[2024-11-15] MEDS: Doxycycline Hyclate 100 MG CAP PO (08:25)
[2024-11-15] MEDS: Lactobacillus Acidophilus CAP 1 CAP PO (08:25)
[2024-11-15] MEDS: Famotidine 20 MG TAB PO (08:25)
--- NOTE | 2024-11-15 09:49 | CMDISCH_ITS ---
Date of service: 11/15/24 Time of Service: 09:49 LACE Index Scoring Tool Questions: Length of Stay (in days): 2 Was the patient admitted via the E.D.?: Yes E.D. Visits: 2 Answers: Total Score: 7 Risk of Readmission: Low Risk Care Management Discharge Plan Reason for Hospitalization: recurrent cellulitis Discharge Plan: Ramses was discharged back to [facility] earlier today. He will be on 2 oral antibiotics, and was given 3 doses of cefpodoxime to get him through until the facility can order and receive that med. Discharge was coordinated with VARUN Bell, at the facility. Ramses will f/u with the facility provider and continue per his plan of care. He was transported home by the [employer]. Patient/Family Education Needs: Review of discharge instructions, activity, limitations, and discuss Ask me 3.
--- NOTE | 2024-11-15 10:02 | W.PM.DS.N ---
Date of service: 11/15/24 Time of Service: 10:02 DS: Diagnosis Discharge Diagnosis (1) Cellulitis of right lower extremity: Status: Acute (2) Opioid use disorder: Status: Chronic (3) GERD (gastroesophageal reflux disease): Status: Chronic (4) Chronic venous insufficiency of lower extremity: Status: Acute Discharge Plan Disposition Patient Disposition: [facility] Condition: Good Discharge Details Reason For Visit: Recurrent Cellulitis Admit Date/Time: 11/13/24 17:05 Admit Provider: Tejinder Brewer Attending Provider: Tejinder Brewer Primary Care Provider: Unknown,Unknown Hospital Course Hospital Course: Patient presented with signs and symptoms of worsening cellulitis of the right lower extremity despite having been started on Bactrim and Keflex 3 days prior. Patient did not have fever, leukocytosis and predominant sepsis criteria. Upon admission he was started on ceftriaxone and vancomycin and did have rapid improvement of his symptoms. 1 out of 4 bottles blood cultures were positive for gram-positive cocci but due to it does not fit patient's clinical picture thought to be secondary to contaminant. Therefore, given the patient's symptoms have improved he will be discharged back to police custody with an additional 10 days of doxycycline and cefpodoxime. And Home Meds and New Rx's Prescriptions: New doxycycline hyclate 100 mg Capsule 100 mg PO BID Qty: 20 0RF cefpodoxime 200 mg Tablet 400 mg PO BID Qty: 40 0RF Continued famotidine 20 mg tablet 20 mg PO BID PRN ibuprofen [Advil] 200 mg tablet 600 mg PO BID buprenorphine-naloxone [Suboxone] 8-2 mg film 3 film sublingual DAILY metoprolol succinate 25 mg tablet extended release 24 hr 25 mg PO DAILY Qty: 30 0RF triamcinolone acetonide 0.5 % cream 1 applic topical BID tolnaftate [Tinactin] 1 % powder 1 applic topical BID docusate sodium [Colace] 100 mg Capsule 100 mg PO BID PRN Discontinued cephalexin 500 mg capsule 500 mg PO BID sulfamethoxazole-trimethoprim [Bactrim DS] 800-160 mg tablet 1 tab PO BID Discharge Instructions Stand Alone Forms: Nursing Discharge Form Referrals: Unknown,Unknown [Primary Care Provider, Unknown] Referral Note: Please follow up with the nurse practitioner the correctional. Activity:: Activity as Tolerated Equipment/Supplies:: No Equipment Needed Diet:: As Tolerated Discharge Orders Discharge Orders: Discharge Order (Routine); Ordered 11/15/24 Ordered By: Tejinder Brewer DS: Summary Time Spent with Patient providing and/or coordinating discharge services: Greater than 30 minutes Status at Discharge Functional status at discharge: independent ambulation Overall status at discharge: patient is back to baseline Mental Status: mental status grossly normal Speech and Movement: speech and movement normal Mood: congruent mood Affect: normal affect Exam Narrative Exam Narrative: Well-appearing gentleman laying in bed in no acute distress, ANO x 4, heart regular rhythm, lungs auscultation bilaterally, abdomen soft, nontender, nondistended, warmth and redness of the right lower extremity, improved in intensity and somewhat withdrawn from demarcated line Psych Mental Status: mental status grossly normal Speech and Movement: speech and movement normal Mood: congruent mood Affect: normal affect DS: Data Vitals/I&O Vitals and I&O: Vital Signs Temperature 98.1 F 11/15/24 07:44 Temperature Source Temporal Artery Scan 11/15/24 07:44 Pulse 70 11/15/24 07:44 Pulse Rhythm Regular 11/13/24 17:56 Respiratory Rate 18 11/15/24 07:44 Respiratory Effort Normal, Non-Labored 11/13/24 17:56 Respiratory Depth Normal 11/13/24 17:56 Respiratory Pattern Normal 11/13/24 17:56 Blood Pressure 132/78 11/15/24 07:44 Blood Pressure Mean 96 11/15/24 07:44 Blood Pressure Position Sitting 11/13/24 13:58 Pulse Oximetry 95 11/15/24 07:44 Oxygen Delivery Method Room Air 11/15/24 07:44 Oxygen Flow Rate 0 11/15/24 07:44 Pain Level 0 11/15/24 07:44 Intake & Output 11/14/24 11/15/24 11/15/24 17:59 05:59 17:59 Intake Total 710 / 710 500 / 1210 340 / 340 Balance 710 / 710 500 / 1210 340 / 340 Intake: IV 50 / 50 500 / 550 Oral 660 / 660 340 / 340 Other: Urine Color Yellow Urine Appearance Clear Urine Odor Normal Comment Guard has been taking pt to restroom. Data Completed and Pending Labs on day of discharge: Labs from last 24 hours 11/14/24 15:02 Vancomycin Trough 13.6 Preliminary micro results at discharge 11/13/24 12:35 Blood Blood Culture - Preliminary Gram positive cocci 11/13/24 15:00 Blood Blood Culture - Preliminary NO GROWTH 24 HOURS PFSH All Active Problems (Updated 11/13/24 @ 17:10 by Fauzia Negrete MD) Ulcer of extremity due to chronic venous insufficiency (Acute) Chronic venous insufficiency of lower extremity (Acute) Morbid obesity (Acute) GERD (gastroesophageal reflux disease) (Chronic) Chronic hepatitis C (Chronic) Opioid use disorder (Chronic) Cellulitis of right lower extremity (Acute) Medical History (Updated 11/13/24 @ 17:10 by Fauzia Negrete MD) Cardiac arrhythmia Constipation Anxiety disorder Social History Smoking/Tobacco Use Status: Never Smoking risk assessment performed?: Yes Alcohol Intake: former Drug use: Current Sobriety Substance use type: former substance user and IV drugs Housing: other Do you feel safe at home: Yes Do you feel safe in your relationship?: Yes Additional Social history: inmate Time Spent with Patient Time Spent with Patient: <45 minutes Time was spent: preparing to see the patient(eg.review tests), obtaining and/or reviewing separately otained hiistory, ordering medications,tests, procedures, referring, communicating with other health school childcare attendant, indepentently interpreting results, counseling the patient and care coordination
--- NOTE | 2024-11-15 10:23 | NUR.NOTE ---
Nursing Note: report given to MILLIE Martínez
== END 2024-11-15 11:28 | DRG 603 ==
LOC: ER 17:10 → MS 17:53
PROVIDERS: Admitting Provider Family Medicine; Emergency Provider Emergency Medicine; Responsible Provider Family Medicine; Visit Provider Family Medicine
DX: L03.115 Cellulitis of right lower limb (principal); F11.20 Opioid dependence, uncomplicated; Z68.41 Body mass index [BMI] 40.0-44.9, adult; I87.2 Venous insufficiency (chronic) (peripheral); K21.9 Gastro-esophageal reflux disease without esophagitis; E66.01 Morbid (severe) obesity due to excess calories; B18.2 Chronic viral hepatitis C; F41.9 Anxiety disorder, unspecified; K59.00 Constipation, unspecified; I49.8 Other specified cardiac arrhythmias; Z79.899 Other long term (current) drug therapy
CPT/HCPCS: 00123; 36415; 80048; 80053; 85027; 85652; 87040; 87077; 96365; 96367; 99285; 73701; 80202; 83735; 85025; 86140; 87186; 99223; 99233; 99239; J0696; J3373; J3490